=== PATIENT | male | born 1950 | race Caucasian/White ===

== ENCOUNTER → 2018-04-13 10:42 | Outpatient (CLI) | payer MEDICARE, MEDICAID, SELFPAY ==
[2018-04-13 13:14] LABS: ALT 164 U/L (12-78); AST 120 U/L (15-37); Alkaline Phosphatase 96 U/L (46-116); Amylase 55 U/L (25-115); Anion Gap 11.5 mmol/L (3-11); BUN 23 mg/dL (7-18); Bilirubin, Total 0.6 mg/dL (0.2-1.0); CO2 29.5 mmol/L (21.0-32.0); CREATININE 1.13 mg/dL (0.70-1.30); Calcium 9.8 mg/dL (8.5-10.1); Chloride 90 mmol/L (98-107); Glucose 122 mg/dL (70-100); Lipase 363 U/L (73-393); Potassium 3.8 mmol/L (3.5-5.1); Sodium 131 mmol/L (136-145); TSH 1.48 uIU/mL (0.358-3.74); Total Protein 7.9 g/dL (6.4-8.2)
[2018-04-13 14:15] LABS: ESR 18 MM/HR (1-20)
[2018-04-14 12:56] LABS: Lyme Ab w Rflx to Lyme Confirm Negative
== END ==
PROVIDERS: PCP Family Medicine; Visit Provider Family Medicine
DX: R10.12 Left upper quadrant pain (principal); R53.83 Other fatigue
CPT/HCPCS: 36415; 80053; 83690; 85652; 82150; 84443; 86618

== ENCOUNTER → 2018-04-20 00:30 | Outpatient (CLI) | payer MEDICARE, MEDICAID, SELFPAY ==
--- NOTE | 2018-04-20 07:26 | DI.RPTCT_ITS ---
SYMPTOM/DIAGNOSIS: ATYPICAL LUQ PAIN/RECENT DIARRHEA, LUQ PAIN R10.[address]: 04/20 CT examination of the abdomen and pelvis was performed with a bolus infusion of 100 cc Omnipaque 350 and ingestion of dilute barium. Images obtained through the lung bases are unremarkable. The liver appears mildly enlarged and is of decreased attenuation consistent with hepatic steatosis. No focal lesion identified. Spleen is unremarkable. Pancreas appears normal. No biliary dilatation or gallbladder abnormality seen by CT criteria. Abdominal aorta is of normal diameter and no major vascular abnormality seen. Small bilateral fat containing inguinal hernias are noted. Adrenals are unremarkable in appearance. There are a couple of apparent tiny left renal cysts, otherwise, kidneys are unremarkable in appearance and there is no evidence of urinary tract obstruction or calcification. Urinary bladder is essentially empty. The possibility of urinary bladder wall thickening is not excluded but this cannot be evaluated due to the contracted gallbladder status. Appendix is normal. There is question of wall thickening of portions of the ascending colon and distal descending colon and rectosigmoid as well as possibly mild wall thickening of the terminal ileum. The possibility of colitis is raised. No evidence of diverticulitis. No other bowl pathology identified and there is no evidence of obstruction. CONCLUSION: 1. Hepatic steatosis 2. Findings raising the possibility of colitis, the findings could be on the basis of inflammatory or infectious causes. Please correlate clinically.
[2018-04-20] MEDS: Omnipaque 350 MG/ML 50 ML BTL IJ (07:47)
[2018-04-20] MEDS: Breeza Beverage 473 ML BTL PO ×2 (09:25→09:26)
[2018-04-20] MEDS: Omnipaque 350 MG/ML 100 ML BTL IJ (09:25)
== END ==
PROVIDERS: PCP Family Medicine; Visit Provider Family Medicine
DX: R10.12 Left upper quadrant pain (principal); R19.7 Diarrhea, unspecified; K76.0 Fatty (change of) liver, not elsewhere classified; K63.89 Other specified diseases of intestine; K40.90 Unilateral inguinal hernia, without obstruction or gangrene, not specified as recurrent
CPT/HCPCS: 74177; Q9967; 82565; J3490

== ENCOUNTER 2019-03-16 10:01 | Outpatient (CLI) | payer MEDICARE, MEDICAID, SELFPAY ==
[2019-03-16 11:08] LABS: Abs Immature Grans 0.01 k/cumm (0.0-0.09); Absolute Basophil Count 0.06 k/cumm (0.0-0.2); Absolute Eosinophil Count 0.11 k/cumm (0.0-0.7); Absolute Lymphocyte Count 1.26 k/cumm (1.2-3.4); Absolute Monocyte Count 0.49 k/cumm (0.11-0.7); Absolute Neutrophil Count 6.73 k/cumm (1.2-6.7); Basophils % 0.7; Eosinophils % 1.3; HCT 25.5 % (40.0-50.0); Immature Grans % 0.1; Lymphocytes % 14.5; Mean Corp. HGB Concentration 31.4 g/dL (32.0-36.0); Mean Corpuscular Volume 89.2 fL (80-95); Mean Platelet Volume 10.1 fL (8.0-11.0); Monocytes % 5.7; Neutrophils % 77.7; Platelet Count 440 x1000/uL (130-400); RBC 2.86 m/cumm (4.50-6.00); RBC Distribution Width 27.6 % (11.8-14.1); White Blood Cell Count 8.66 k/cumm (4.4-10.8)
[2019-03-16 12:03] LABS: Anisocytosis 3+; Diff Comment RBC Morph Reviewed; Hypochromasia 2+; Target Cells 2+
[2019-03-16 12:05] LABS: ALT 66 U/L (12-78); AST 94 U/L (15-37); Alkaline Phosphatase 162 U/L (46-116); Anion Gap 13.3 mmol/L (3-11); BUN 14 mg/dL (7-18); Bilirubin, Total 0.8 mg/dL (0.2-1.0); CO2 24.7 mmol/L (21.0-32.0); CREATININE 1.46 mg/dL (0.70-1.30); Calcium 8.1 mg/dL (8.5-10.1); Chloride 94 mmol/L (98-107); Estimated GFR 48.16 (mL/min/1.73m2); Glucose 125 mg/dL (70-100); Potassium 4.2 mmol/L (3.5-5.1); Sodium 132 mmol/L (136-145); TSH 1.68 uIU/mL (0.358-3.74); Vitamin B12 826 pg/mL (193-986)
[2019-03-16 12:06] LABS: ESR 55 MM/HR (1-20)
[2019-03-16 12:24] LABS: Magnesium 0.7 mg/dL (1.8-2.4)
[2019-03-16 12:43] LABS: FREE T4 1.34 ng/dL (0.76-1.46)
[2019-03-16 17:36] LABS: T3, Total 146 ng/dl (97-169)
== END 2019-03-16 10:21 ==
PROVIDERS: Visit Provider Family Medicine
DX: R00.0 Tachycardia, unspecified (principal); R51 Headache; I10 Essential (primary) hypertension; E83.42 Hypomagnesemia; R20.2 Paresthesia of skin; R42 Dizziness and giddiness
CPT/HCPCS: 36415; 80053; 85652; 82607; 83735; 84439; 84443; 84480; 85025

== ENCOUNTER 2019-03-16 16:56 | Inpatient (IN) | payer MEDICARE, MEDICAID, SELFPAY ==
[2019-03-16] VITALS (26 sets, daily range): BP systolic 108–130; BP diastolic 65–81; PULSE 103–122; RESP 11–25; TEMP 36.6–37.2; O2SAT 73–100
--- NOTE | 2019-03-16 17:23 | W.ED.GENAD ---
Discharge Plan Disposition Patient Disposition: [facility] INPATIENT Condition: Stable Discharge Details Chief Complaint: GenMedical Clinical Impression: Hypomagnesemia, Anemia ED Provider: Yosi Álvarez Home Meds and New Rx's Prescriptions: No Action meloxicam 15 mg tablet 15 mg PO DAILY Qty: 30 RF: 2 triamcinolone acetonide 0.025 % cream 1 applic Topical BID Qty: 1 RF: 4 esomeprazole magnesium 40 mg capsule,delayed release(DR/EC) 40 mg PO DAILY Qty: 90 RF: 2 losartan 100 mg tablet 100 mg PO DAILY Qty: 90 RF: 4 azelastine 137 mcg (0.1 %) aerosol,spray 1 spray NS BID Qty: 200 RF: 2 sildenafil [Viagra] 100 MG tablet 100 mg PO PRN Qty: 6 RF: 3 amitriptyline 25 mg tablet 25 mg PO DAILY Qty: 90 RF: 4 hydrochlorothiazide 12.5 mg tablet 12.5 mg PO DAILY Qty: 90 RF: 4 Medical Decision Making 68-year-old male referred from the outpatient setting after screening labs revealed a magnesium of 0.7. Para graph he reports weeks of feeling lightheaded with rising, states one episode of fainting, and is noted and generalized leg weakness that has caused him to give out. He has not fallen or hurt himself. Denies difficulty with speech and no focal neurologic deficits. He arrives a temperature of 36.6, blood pressure 108/73, pulse at rest is 120. He lives at home alone in [facility]. Admits to nightly use of alcohol 3-4 drinks, states that he cooks for himself. Today's laboratories were drawn in the morning reveal a magnesium of 0.7 and as well a hemoglobin of 8 which is dropped from comparison about 1 year ago of 15. Differential diagnosis includes diuretic induced hypomagnesemia, dehydration, malnutrition, must exclude a central process for his recent leg weakness and CT scan of the head ordered. Patient placed on a registered nurse cardiac telemetry, screening labs repeated and magnesium initiated. This evening's laboratories reveal a magnesium of 0.6. Sodium 133, potassium 3.4, chloride 94, bicarb 24, BUN 12, creatinine 1.4, AST 89, ALT 64, alk phos 147. Albumin 2.9 Chest x-ray and CT scan of the head Given the patient's severe magnesium depletion, he will likely require to 4 to 8 g of parenteral infusion. Therefore, will require admission. Serial CBCs may be performed as he does have the new anemia as well ECG Data Attestation: I personally reviewed and interpreted this ECG (s) as follows: Interpretation: Normal sinus tachycardia with a rate of 110, the QRS is narrow, there is no acute ST segment elevation HPI General Mode of arrival: ambulatory. Date/Time Provider Initiated Documentation: 03/16/19 16:57. Limitations to Documentation: no limitations. Information obtained by: patient. History of Present Illness 68 year old M presents to the emergency department with the chief complaint of Leg weakness and abnormal laboratories today, described as moderate, and is localized to the lower extremity. Patient reports no radiation. Patient started experiencing this week(s) and it has been intermittent. No relieving factors improve symptom(s), No exacerbating factors reported . Patient notes no other symptoms.. Patient did receive the following treatments prior to arrival, none Related Data Home Medications Medication Instructions Recorded Confirmed sildenafil [Viagra] 100 mg PO PRN #6 tab-cap 12/02/17 03/16/19 amitriptyline 25 mg tablet 25 mg PO DAILY #90 tab-cap 05/24/18 03/16/19 hydrochlorothiazide 12.5 mg tablet 12.5 mg PO DAILY #90 tab 05/26/18 03/16/19 azelastine 137 mcg (0.1 %) nasal 1 spray NS BID #200 spray 12/05/18 03/16/19 spray aerosol esomeprazole magnesium 40 mg 40 mg PO DAILY #90 tab-cap 12/05/18 03/16/19 capsule,delayed release losartan 100 mg tablet 100 mg PO DAILY #90 tab-cap 12/05/18 03/16/19 meloxicam 15 mg tablet 15 mg PO DAILY #30 tab 12/05/18 03/16/19 triamcinolone acetonide 0.025 % 1 applic TOPICAL BID #1 gm 12/05/18 03/16/19 topical cream Previous Rx's Medication Instructions Recorded sildenafil [Viagra] 100 mg PO PRN #6 tab-cap 12/02/17 amitriptyline 25 mg tablet 25 mg PO DAILY #90 tab-cap 05/24/18 hydrochlorothiazide 12.5 mg tablet 12.5 mg PO DAILY #90 tab 05/26/18 azelastine 137 mcg (0.1 %) nasal 1 spray NS BID #200 spray 12/05/18 spray aerosol esomeprazole magnesium 40 mg 40 mg PO DAILY #90 tab-cap 12/05/18 capsule,delayed release losartan 100 mg tablet 100 mg PO DAILY #90 tab-cap 12/05/18 meloxicam 15 mg tablet 15 mg PO DAILY #30 tab 12/05/18 triamcinolone acetonide 0.025 % 1 applic TOPICAL BID #1 gm 12/05/18 topical cream Allergies Allergy/AdvReac Type Severity Reaction Status Date / Time lisinopril Allergy Intermediate Mouth Verified 03/16/19 09:19 blisters/cough General Stated Complaint: GenMedical RENEA: 3 Review of Systems Review of Systems Reports lightheadedness with rising over weeks time, generalized leg weakness over weeks time. Denies dark or bloody stools. No changes to medications. No recent illness. 8 systems reviewed and otherwise neg [facility] Surgical History Left leg multiple compound FX Left shoulder repair PROCEDURES Family History Mother No problems noted. Father No problems noted. Sister No problems noted. Sister No problems noted. Brother Depression Brother No problems noted. Social History Smoking/Tobacco Use Status: Current every day Tobacco Type: cigarettes Second Hand Exposure: No Alcohol Intake: current Alcohol Intake frequency: 3 or more drinks per day Alcohol type: hard liquor Drug use: Current Sobriety Substance use type: does not use Caregiver/Support person: No Housing: house Communication Needs: Hard of Hearing Pets and animals: No Sexually active: No Do you think of yourself as: straight/heterosexual Current gender identity: male What is your relationship status?: How often do you talk on the phone with friends or family?: once per week How often do you get together with friends or relatives?: decline to answer How often do you attend jewish or episcopalian services?: decline to answer Do you belong to any clubs or organized social groups?: no Panel score (0-1 are the most socially isolated patients): 0 What type of physical activity do you participate in: none Patito/Voodoo: No preference Special patito needs: No Seatbelt use: always Helmet use: No Drive intox or ride w/intox sulky driver: No Exam Narrative Exam Narrative: GEN: awake, alert, oriented 3. Pleasant, well groomed, interactive. HEAD: Normocephalic, atraumatic ENT: Mucous membranes moist, oropharynx unremarkable, External ear exam unremarkable EYES: PERRL, EOMI NECK: Full ROM, no CECILIA, no menigismus CHEST/RESP: Nontender, clear to auscultation bilateral, no wheeze/rhonchi/rales CARDIOVASCULAR: RRR, no murmur, rub gabrielle. 2+ Rad pulse bilateral ABDOMEN: Soft, nontender, no mass. +Bowel sounds. Rectal exam with normal tone, soft brown stool is guaiac negative EXT: Full ROM, no edema, no rash Neuro: Grossly normal neurologic exam, conversant, interactive. Psych: Speech fluent, thoughts congruent, affect normal Course Vital Signs Temperature 36.6 C 03/16/19 17:00 Pulse 122 H 03/16/19 17:00 Respiratory Rate 16 03/16/19 17:00 Blood Pressure 108/73 03/16/19 17:00 Pulse Oximetry 95 03/16/19 17:00 Temperature 36.6 C 03/16/19 17:00 Temperature Source Skin 03/16/19 17:00 Pulse 122 H 03/16/19 17:00 Respiratory Rate 16 03/16/19 17:00 Blood Pressure 108/73 03/16/19 17:00 Pulse Oximetry 95 03/16/19 17:00 Oxygen Delivery Method Room Air 03/16/19 17:00 Oxygen Flow Rate 0 03/16/19 17:00
[2019-03-16 17:41] LABS: Abs Immature Grans 0.02 k/cumm (0.0-0.09); Absolute Basophil Count 0.06 k/cumm (0.0-0.2); Absolute Eosinophil Count 0.08 k/cumm (0.0-0.7); Absolute Lymphocyte Count 2.16 k/cumm (1.2-3.4); Absolute Monocyte Count 0.59 k/cumm (0.11-0.7); Absolute Neutrophil Count 6.11 k/cumm (1.2-6.7); Basophils % 0.7; Eosinophils % 0.9; HCT 25.3 % (40.0-50.0); HGB 8.2 g/dL (13.5-17.5); Immature Grans % 0.2; Lymphocytes % 23.9; Mean Corp. HGB Concentration 32.4 g/dL (32.0-36.0); Mean Corpuscular Hemoglobin 28.8 pg (27.0-33.0); Mean Corpuscular Volume 88.8 fL (80-95); Mean Platelet Volume 10.1 fL (8.0-11.0); Monocytes % 6.5; Neutrophils % 67.8; Platelet Count 408 x1000/uL (130-400); RBC 2.85 m/cumm (4.50-6.00); RBC Distribution Width 27.9 % (11.8-14.1); White Blood Cell Count 9.02 k/cumm (4.4-10.8)
[2019-03-16] MEDS: MAGNESIUM SULFATE 2 GM/50 ML BAG IVPB (17:58)
--- NOTE | 2019-03-16 17:59 | NUR.NOTE ---
pt to ct taken by drafter (cad) electrical Nursing Note:
[2019-03-16 18:03] LABS: Anisocytosis 1+; Macrocytosis 1+; Microcytosis 1+
[2019-03-16 18:08] LABS: ALT 64 U/L (12-78); AST 89 U/L (15-37); Albumin 2.9 g/dL (3.4-5.0); Alkaline Phosphatase 147 U/L (46-116); Anion Gap 14.7 mmol/L (3-11); BUN 12 mg/dL (7-18); Bilirubin, Total 0.6 mg/dL (0.2-1.0); CO2 24.3 mmol/L (21.0-32.0); CREATININE 1.44 mg/dL (0.70-1.30); Chloride 94 mmol/L (98-107); Estimated GFR 48.93 (mL/min/1.73m2); Glucose 101 mg/dL (70-100); Potassium 3.4 mmol/L (3.5-5.1); Sodium 133 mmol/L (136-145); Total Protein 7.3 g/dL (6.4-8.2)
[2019-03-16 18:11] LABS: Magnesium 0.6 mg/dL (1.8-2.4)
--- NOTE | 2019-03-16 18:14 | DI.COMBO_ITS ---
SYMPTOM/DIAGNOSIS: GENERALIZED WEAKNESS, LEG WEAKNESS, FALLS PA AND LATERAL CHEST: No priors. The heart is normal in size. The lungs are clear. The mediastinal structures and pleura appear intact. CONCLUSION: Normal chest. NONCONTRAST HEAD CT: Comparison is made with 02/14/18. The ventricles and sulci are consistent with the patient's age. There is a small area of encephalomalacia involving the right parietal lobe. Areas of decreased attenuation are present in the white matter most consistent with small vessel ischemic disease. No acute intracranial hemorrhage, infarct, midline shift or mass effect is identified. The ventricles are intact. The basilar cisterns are patent. The visualized paranasal sinuses are clear as are the mastoid air cells. The calvarium is intact. IMPRESSION: No acute intracranial process.
--- NOTE | 2019-03-16 18:15 | NUR.NOTE ---
pt back from ct medicated as per mdo Nursing Note:
--- NOTE | 2019-03-16 18:27 | DI.VRAD_ITS ---
EXAM: XR Chest, 2 Views EXAM DATE/TIME: 03/16/2019 17:41 CLINICAL HISTORY: 68 years old, male; Other: Generalized weakness TECHNIQUE: Imaging protocol: XR of the chest, 2 views. COMPARISON: No relevant prior studies available. FINDINGS: Lungs: Mild hyperinflation without airspace consolidation. Pleural space: No pleural effusion. No pneumothorax. Heart/Mediastinum: No cardiomegaly. Bones/joints: No acute fracture. IMPRESSION: Mild hyperinflation without airspace consolidation. Dictated and Authenticated by: Vilma Casey MD. Ordering:MADELEINE Deluca MD
--- NOTE | 2019-03-16 18:27 | DI.VRAD_ITS ---
EXAM: CT Head Without Contrast EXAM DATE/TIME: 03/16/2019 17:24 CLINICAL HISTORY: 68 years old, male; Weakness, extremity; Patient HX: Generalized weakness TECHNIQUE: Imaging protocol: Axial computed tomography images of the head without contrast. Coronal and sagittal reformatted images were created and reviewed. Radiation optimization: All CT scans at this facility use at least one of these dose optimization techniques: automated exposure control; mA and/or kV adjustment per patient size (includes targeted exams where dose is matched to clinical indication); or iterative reconstruction. COMPARISON: No relevant prior studies available. FINDINGS: Brain: Moderate cerebral atrophy. Minimal periventricular white matter hypodensity. Small focus of right parietal encephalomalacia. No edema or hemorrhage. Ventricles: No ventriculomegaly. Bones/joints: No acute fracture. Sinuses: No acute sinusitis. Mastoid air cells: No mastoid effusion. Soft tissues: No suspicious lesions. IMPRESSION: No acute intracranial pathology. Dictated and Authenticated by: Vilma Casey MD. Ordering:MADELEINE Deluca MD
[2019-03-16] MEDS: MAGNESIUM SULFATE 4 GM/100 ML BAG IVPB (21:34)
[2019-03-16] MEDS: Enoxaparin 40 MG/0.4 ML SYR SC (21:35)
--- NOTE | 2019-03-16 22:55 | HPE_ITS ---
Date of service: 03/16/19 Time of Service: 22:55 Assessment and Plan (1) Hypomagnesemia: Current visit: Yes Status: Acute multiple factors contributing to his hypomagnesemia including chronic use of PPI w/out and identified reason for its use, chronic alcohol intake, poor diet, and chronic use of thiazide diuretic. I have changed his PPI to zantac however, I have kept him on his HCTZ since his BP is controlled. However, in light of his recent syncope spells his BP meds may need to be cut back and I would stop the HCTZ first. He will need chronic oral potassium and magnesium supplementation. I will have P.T. evaluate his gait/strength to be sure that there is no other components to his complaints of leg weakness. Hopefully with full Mg AND K replacments his symptoms will resolve. (2) Hypokalemia: Current visit: Yes Status: Acute begin oral replacement in addition to his magnesium supplements (3) Anemia: Current visit: Yes Status: Chronic I explained to the patient that while his stool was negative in the Er for occult blood that this does not mean that he is not slowly having some GI bleeding. Given his chronic heart burn issues he needs an EGD and given his age and anemia he also needs a c-scope. Both can be done as an outpatient and ought to be included on his home going instructions to have Dr. Michael make a referral for both procedures. Qualifiers: Anemia type: unspecified type Qualified Code(s): D64.9 - Anemia, unspecified (4) Essential hypertension: Current visit: No Status: Chronic continue his home meds for now. monitor his BP closely. Given his syncope spells he may not require as much bp meds. Check outpatient Zio patch to monitor for arrhythmias although his spells sound orthostatic in nature and not d/t arrhythmias. (5) Heart burn: Current visit: Yes Status: Acute change to zantac. needs upper endoscopy as outlined above (also lower endoscopy d/t age and anemia). History of Present Illness Chief Complaint: severe bilateral leg weakness Narrative: 68-year-old male with a past medical history significant for essential hypertensio n as well as chronic heartburn which is not been evaluated with endoscopy. He chronically takes omeprazole for his heartburn and is on losartan and hydrochlorothiazide for his essential hypertension. He presents emergency department by referral from his PCP Dr. Jumana Michael for treatment of severe hypomagnesemia. Patient had presented to her office because of complaints of bilateral lower extremity weakness for the past month and trouble walking upstairs. There is no associated numbness in his legs or hands or arms. He does admit to orthostatic lightheadedness and in fact had 2 or 3 syncopal spells the last one occurring a couple weeks ago. Outpatient labs this morning revealed a normocytic normochromic anemia with a hemoglobin of 8 g hematocrit 25% with a platelet count 440,000 and normal white count of 8600. Routine chemistries demonstrated a low serum sodium of 132 with normal potassium of 4.2 and a magnesium of 0.7 and elevated creatinine 1.46 with a normal BUN of 14. Liver transaminases are mildly elevated with an AST of 94 and alkaline phosphatase 162 and a low albumin of 3.0. Patient admits to regular alcohol use including 3 small glasses of vodka daily. He denies any history of alcohol withdrawal or seizures. Patient was evaluated emergency room by Dr. Yosi Álvarez who repeated the patient's chemistry profile and found his serum potassium to be low at 3.4 and his magnesium at 0.6. BUN and creatinine were pretty much the same. His CBC confirmed a anemia with a hemoglobin 8.2 g hematocrit 25%. His last normal CBC was in March 2018 when his hemoglobin was 15 g. Patient denies any melena nor any hematochezia nor any abdominal pain. He denies any chest pain or pressure or shortness of breath nor any palpitations. He is never had an upper nor lower endoscopy. Treatment emergency room included IV magnesium sulfate 2 g. I have since ordered another 4 g of magnesium intravenously to be given over 2 hours. Patient is also been given supplemental potassium as well as oral magnesium supplementation. I explained to the patient that the likely cause of his hypomagnesemia is a multifactorial cause including chronic use of omeprazole along with taking an oral diuretic such as hydrochlorothiazide as well as his chronic alcohol intake. He is not a vegetarian but admits he does not eat a lot of meat so there may be some problems with his diet and not getting adequate oral magnesium. I advised him he is going to need to go on a magnesium supp lementation and that he should have further evaluation of his anemia including upper and lower endoscopy as an outpatient. Review of Systems Constitutional Reports as per [facility] Eyes Reports system reviewed and no additional complaints, except as [facility] ENT Reports hearing loss Cardiovascular Denies chest pain, Denies chest pain at rest, Denies chest pain with activity, Reports syncope (2 or 3 episodes over past couple months. last one 2 wks ago, orthostatic), Reports lightheadedness, Denies dyspnea and Denies dyspnea on exertion Respiratory Denies dyspnea and Denies dyspnea on exertion Gastrointestinal Denies abdominal pain, Denies melena, Denies hematochezia, Denies change in bowel habits, Denies change in stool character, Reports heartburn (resolved w/ continued use of omeprazole), Denies nausea, Denies vomiting and Denies hematemesis Genitourinary Reports system reviewed and no additional complaints, except as [facility] Musculoskeletal Reports muscle weakness (both legs but not the arms) and Denies tingling Integumentary/Breasts Reports system reviewed and no additional complaints, except as [facility] Neurologic Reports syncope (2 or 3 episodes over past couple months. last one 2 wks ago, orthostatic), Reports focal weakness (both legs feel heavy and trouble picking them up to climb stairs), Denies sensory deficit, Denies tingling and Denies paresthesias Psychiatric Reports system reviewed and no additional complaints, except as [facility] Endocrine Reports system reviewed and no additional complaints, except as [facility] Hematologic/Lymphatic Reports system reviewed and no additional complaints, except as [facility] Allergic/Immunologic Reports system reviewed and no additional complaints, except as [facility] Medical History Allergic rhinitis (Chronic) Anxiety (Chronic 06/19/13) Chronic sinusitis (Chronic) Cluster headache syndrome (Chronic 05/01/13) 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 Father No problems noted. Sister No problems noted. Sister No problems noted. Brother Depression Brother No problems noted. Social History Smoking/Tobacco Use Status: Current every day Tobacco Type: cigarettes Second Hand Exposure: No Alcohol Intake: current Alcohol Intake frequency: 3 or more drinks per day Alcohol type: hard liquor Drug use: Current Sobriety Substance use type: does not use Caregiver/Support person: No Housing: house Communication Needs: Hard of Hearing Pets and animals: No Sexually active: No Do you think of yourself as: straight/heterosexual Current gender identity: male What is your relationship status?: How often do you talk on the phone with friends or family?: once per week How often do you get together with friends or relatives?: decline to answer How often do you attend worship or mu-ism services?: decline to answer Do you belong to any clubs or organized social groups?: no Panel score (0-1 are the most socially isolated patients): 0 What type of physical activity do you participate in: none Patito/Judaism: No preference Special patito needs: No Seatbelt use: always Helmet use: No Drive intox or ride w/intox transporter driver: No Meds Home Medications Medication Instructions Recorded Confirmed Type sildenafil [Viagra] 100 mg PO PRN #6 tab-cap 12/02/17 03/16/19 Rx amitriptyline 25 mg tablet 25 mg PO DAILY #90 tab-cap 05/24/18 03/16/19 Rx hydrochlorothiazide 12.5 mg tablet 12.5 mg PO DAILY #90 tab 05/26/18 03/16/19 Rx azelastine 137 mcg (0.1 %) nasal 1 spray NS BID #200 spray 12/05/18 03/16/19 Rx spray aerosol esomeprazole magnesium 40 mg 40 mg PO DAILY #90 tab-cap 12/05/18 03/16/19 Rx capsule,delayed release losartan 100 mg tablet 100 mg PO DAILY #90 tab-cap 12/05/18 03/16/19 Rx triamcinolone acetonide 0.025 % 1 applic TOPICAL BID #1 gm 12/05/18 03/16/19 Rx topical cream Allergies Allergy/AdvReac Type Severity Reaction Status Date / Time lisinopril Allergy Intermediate Mouth Verified 03/16/19 09:19 blisters/cough Exam Const General: cooperative, no acute distress and disheveled Nutritional Appearance: average body habitus Orientation: alert, awake and oriented x3 HENMT Head: normal to inspection, normocephalic and atraumatic Ears: hearing grossly impaired Mouth: oral mucosae normal, lip normal, tongue normal and oropharynx normal Teeth and gingiva: dentition normal Eyes General: appearance normal, both eyes and all related structures Alignment and Position: alignment normal Periorbital: periorbital findings normal Eyelids: eyelids normal Conjunctivae: conjunctivae normal Sclera: sclerae normal Cornea: corneas normal Pupils: PERRL EOM: EOM intact bilaterally Direct ophthalmoscopy: normal light reflex Neck Neck: normal visual inspection, full ROM, no lymphadenopathy, trachea midline, supple and no JVD Thyroid: thyroid normal Carotids: normal carotid upstroke Lymphatic: no lymphadenopathy noted Resp Effort & Inspection: normal respiratory effort and able to speak in complete sentences Auscultation: clear to auscultation bilaterally Cardio Jugular venous pressure: no JVD Palpation: normal PMI Rate: regular rate Rhythm: regular rhythm Heart Sounds: S1 normal, S2 normal, normal, physiologic split S2 and no murmurs Bruits: no abdominal aortic bruits Pulses: normal peripheral pulses GI Inspection: normal to inspection Palpation: soft and no hepatosplenomegaly Percussion: normal to percussion Auscultation: normal bowel sounds Rectal Exam: deferred Other: rectal exam done in the ER by ER attending and reported as normal, heme negative stool Back/Spine/Pelvis Back: no CVA tenderness Cervical Spine: normal cervical lordosis Thoracic/Lumbar Spine: thoracic and lumbar spine normal to inspection Skin General skin exam: no rashes or lesions noted, elasticity normal and turgor normal Lesions: no lesions Rashes: no rashes Extrem General: normal to inspection, full ROM and normal capillary refill Psych Appearance: disheveled Mental Status: mental status grossly normal Speech and Movement: speech and movement normal Mood: congruent mood Affect: normal affect Attitude: cooperative Thought Process: normal Thought Content: normal Insight: insight good Judgment: judgment good Results Imaging Additional studies: Patient Name: RAUL DA SILVA #: [id number]: ER Ordering Provider: : PRE ER Primary Care Provider: Date of Exam: 03/16/19Sex: M : 1Age: 68 Exam(s) EXAM: CT Head Without Contrast EXAM DATE/TIME: 03/16/2019 17:24 FINDINGS: Brain: Moderate cerebral atrophy. Minimal periventricular white matter hypodensity. Small focus of right parietal encephalomalacia. No edema or hemorrhage. Ventricles: No ventriculomegaly. Bones/joints: No acute fracture. Sinuses: No acute sinusitis. Mastoid air cells: No mastoid effusion. Soft tissues: No suspicious lesions. IMPRESSION: No acute intracranial pathology. Dictated and Authenticated by: Vilma Casey MD. Labs : 03/16/19 17:35 03/16/19 17:35 Laboratory Results - last 24 hr 03/16/19 03/16/19 17:35 17:35 WBC 9.02 RBC 2.85 L Hgb 8.2 L Hct 25.3 L MCV 88.8 MCH 28.8 MCHC 32.4 RDW 27.9 H Plt Count 408 H MPV 10.1 Immature Gran % 0.2 Neutrophils % 67.8 Lymphocytes % 23.9 Monocytes % 6.5 Eosinophils % 0.9 Basophils % 0.7 Absolute Neutrophils 6.11 Absolute Lymphocytes 2.16 Absolute Monocytes 0.59 Absolute Eosinophils 0.08 Absolute Basophils 0.06 RBC Morphology See below Anisocytosis 1+ Microcytosis 1+ Macrocytosis 1+ Sodium 133 L Potassium 3.4 L Chloride 94 L Carbon Dioxide 24.3 Anion Gap 14.7 H BUN 12 Creatinine 1.44 H Estimated GFR/1.73 m2 48.93 Glucose 101 H Calcium 8.0 L Magnesium 0.6 L* Total Bilirubin 0.6 AST 89 H ALT 64 Alkaline Phosphatase 147 H Total Protein 7.3 Albumin 2.9 L Last Vital Signs Temp 37.2 C 03/16/19 20:07 Pulse 110 H 03/16/19 20:07 Resp 18 03/16/19 20:07 BP 130/81 03/16/19 20:07 Pulse Ox 96 03/16/19 20:07
[2019-03-17] VITALS (19 sets, daily range): BP systolic 122–160; BP diastolic 75–99; PULSE 81–105; RESP 16–19; TEMP 35.8–37; O2SAT 93–98
[2019-03-17] MEDS: Magnesium Gluconate 500 MG TAB PO ×3 (00:25→20:22)
[2019-03-17] MEDS: Potassium Chloride 10 MEQ TABCR 20 MEQ PO ×3 (00:26→14:59)
[2019-03-17] MEDS: Normal Saline 1,000 ML 30 ML IV (05:11)
[2019-03-17 05:43] LABS: Bilirubin Negative (Negative); Blood Negative (Negative); Clarity Clear (Clear); Glucose Negative (Negative); Ketones Negative (Negative); Leukocyte Esterase Negative (Negative); Nitrite Negative (Negative); Specific Gravity 1.015 (1.005-1.025); Urobilinogen 0.2 EU/dL (Up TO 0.2)
[2019-03-17] MEDS: Amitriptyline 25 MG TAB PO (08:06)
[2019-03-17] MEDS: Losartan 50 MG TAB 100 MG PO (08:06)
[2019-03-17 08:17] LABS: Abs Immature Grans 0.02 k/cumm (0.0-0.09); Absolute Basophil Count 0.06 k/cumm (0.0-0.2); Absolute Eosinophil Count 0.09 k/cumm (0.0-0.7); Absolute Lymphocyte Count 1.92 k/cumm (1.2-3.4); Absolute Monocyte Count 0.49 k/cumm (0.11-0.7); Absolute Neutrophil Count 4.75 k/cumm (1.2-6.7); Basophils % 0.8; Eosinophils % 1.2; HCT 21.1 % (40.0-50.0); Immature Grans % 0.3; Lymphocytes % 26.2; Mean Corp. HGB Concentration 32.2 g/dL (32.0-36.0); Mean Corpuscular Hemoglobin 28.7 pg (27.0-33.0); Mean Platelet Volume 10.3 fL (8.0-11.0); Monocytes % 6.7; Neutrophils % 64.8; Platelet Count 354 x1000/uL (130-400); RBC 2.37 m/cumm (4.50-6.00); RBC Distribution Width 27.5 % (11.8-14.1); White Blood Cell Count 7.33 k/cumm (4.4-10.8)
[2019-03-17 08:20] LABS: HGB 6.8 g/dL (13.5-17.5)
[2019-03-17 08:22] LABS: Anisocytosis 3+; Basophilic Stippling Present; Diff Comment RBC Morph Reviewed; Hypochromasia 2+; Microcytosis 2+
[2019-03-17 08:23] LABS: Poikilocytes 1+; Polychromasia Present
[2019-03-17 08:25] LABS: Folate 6.4 ng/mL (8.6-20.0)
[2019-03-17 09:02] LABS: Iron 70 ug/dL (50-175); Total Iron Binding Capacity 187 ug/dL (250-450); Transferrin Sat 37 % (20-55)
[2019-03-17 09:10] LABS: HCT 23.8 % (40.0-50.0); HGB 7.7 g/dL (13.5-17.5)
[2019-03-17 09:19] LABS: Anion Gap 11.2 mmol/L (3-11); BUN 11 mg/dL (7-18); CO2 23.8 mmol/L (21.0-32.0); Calcium 7.6 mg/dL (8.5-10.1); Chloride 97 mmol/L (98-107); GGT 324 U/L (15-85); Glucose 107 mg/dL (70-100); Magnesium 2.1 mg/dL (1.8-2.4); Potassium 3.8 mmol/L (3.5-5.1); Sodium 132 mmol/L (136-145)
[2019-03-17 09:22] LABS: Ferritin 1683 ng/mL (8-388)
[2019-03-17 09:32] LABS: LDH 147 U/L (85-227)
--- NOTE | 2019-03-17 10:42 | PT.INNT ---
Date of service: 03/17/19 Time of Service: 10:43 PT Notes Referral for physical therapy was received today with order stating to evaluate and treat for bilateral extremity weakness. Nurse stated that patient is to be infused with blood upon PT's arrival. Patient will be seen this afternoon instead for physical therapy evaluation as ordered. Thank you very much for this referral. Fiona Weeks PT, DPT, CLT [facility]
[2019-03-17] MEDS: Sucralfate 1 GM TAB PO ×3 (11:13→22:15)
[2019-03-17] MEDS: Folic Acid 1 MG TAB PO (11:13)
--- NOTE | 2019-03-17 12:31 | INITIAL_ITS ---
- If Service Date Differs Date of service: 03/17/19 Time of Service: 12:31 Care Management Initial Assess REASON FOR HOSPITALIZATION:: Hypomagesemia PAST MEDICAL HISTORY/PAST SURGICAL HISTORY:: GERD, anemia, anxiety, headaches, deviated nasal septum, HTN, , per report daily alcohol use. PREVIOUS FUNCTIONAL STATUS/SOCIAL/FAMILY SUPPORTS:: Derrell lives alone in [place], [place]. He has no family locally he has friends in the area that provide support. He is able to ambulate, transport himself and attend to his own ADL's. CURRENT FUNCTIONAL STATUS:: Sebastian is alert and engaged in conversation he does have difficulty hearing. He does report that he will need a ride home as a friend brought him in. He does have medciald and CM will need to arrange transport home at time of discharge. Derrell states he drives at baseline but has been to weak to continue this right now. Derrell does report that he barley gets by at home with his SSI and CM is concerned about food insecurity although patient states I get by. ADVANCE DIRECTIVES:: None on file he would consider completing them prior to discharge once he is more rested, CM will provide forms to review. Has patient been provided with information about the portal?: Yes Did the patient sign up for the portal?: No CODE STATUS:: Full Code INSURANCE COVERAGE / FINANCIAL ISSUES:: Medicare/Medicaid CURRENT HOME/COMMUNITY SERVICES/EQUIPMENT:: None PRIMARY CARE PHYSICIAN:: POTENTIAL DISCHARGE NEEDS:: Follow up with primary care, including referral for EGD if recomended at discharge. RCT referral to establish service and COA referral. PATIENT/FAMILY EDUCATION NEEDS:: Discharge education, limitations and follow up plan of care including ask me three and self management. ANTICIPATED BARRIERS TO DISCHARGE:: None TRANSPORTATION:: Via RCT to be coordinated by CM prior to discharge. PLAN:: Sebastian is receiving transfusion today he does have a surgical consult. He is receiving magnesium, IV fluids and lab montioring, he continues on telemetry. CM to continue to assess for needs and discharge planning and disposition.
--- NOTE | 2019-03-17 14:50 | PHARADMIT ---
Admission Pharmacy Clinical Review Code Status Full Code Current Weight 69.7 kg Renally Cleared and Narrow Therapeutic Index Meds CrCL ~58.4 QTc Value / Action Taken QTC 466 BP Control, Fever 146/87, afebrile Electrolytes reviewed NA 132, K+ 3.8, Mg 2.1 (up from 0.6) DVT Prophylaxis No Opiate Usage / Scheduled Bowel Regimen Ordered No Plt/SCr for Heparin / Enoxaparin Plt 354, Scr 1.1 INR for Warfarin n/a H/H stable, WBC/Bands H/H 23.8/7.7 Antibiotic appropriateness n/a Cultures and Sensitivities n/a Surgical ABX d/c within 24 hr n/a DM control / Insulin Dosing n/a Heart Failure (Check EF%) (ALY's, B-Block, Diuretics) Losartan IV to PO Switch n/a Home Meds Reviewed Yes - all ok Home Meds Not Ordered Esomeprazole tamsulosin HCTZ Comments Severe hypomagnesemia thought to be due to combination of EtOH use plus a PPI plus HCTZ -- dc'ing PPI and starting on H2 kenny plus carafate, dc'ing HCTZ Hgb was 6.8 this AM, patient was transfused and surgery consulted to perform an endoscopy as acute blood loss in the upper GI is suspected
--- NOTE | 2019-03-17 15:02 | IN_ITS ---
Date of service: 03/17/19 Time of Service: 14:16 PT Notes Inpatient Physical Therapy Evaluation Date: 03/17/2019 Referring Doctor: Mathew Baltazar MD PT Orders: PT CONSULT: Evaluate and treat for bilateral lower extremity weakness Precautions: Fall. Standard. Activity as tolerated. Patient Profile/Admitting Diagnosis: Patient is a 68-year-old male who presented to the ED on 03/16/2019 with chief complaints of weeklong lightheadedness, severe bilateral leg weakness with increased trouble walking and negotiating stairs. Patient was diagnosed with hypomagnesemia, hypokalemia, anemia, and heartburn. Referral for physical therapy was made in order to address impairment in strength, mobility level, and activity tolerance. 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 he has a flight of stairs to get onto the second floor of the house where he has his bedroom and bathroom. He states that it has become difficult to manage the steps these past couple of weeks. He is independent with all aspects of ADLs without the need for an assistive ambulatory device nor adaptive equipment. Current Functional Limitations: need for assistance for all transfer and ambulation task performance Equipment Owned/DME: None Subjective: Patient is agreeable to a PT consult. He feels a bit better after having received a unit of blood this morning but continues to report being weak with ambulation performance. He denies being dizzy, having chest pains, and having a headache. He is agreeable to recommendations of having PT services if needed upon discharge from this hospital. he also stated that because of the long-standing weakness, he has not driven for the past three weeks. Objective: General Observation: Resting in bed. Telemetry monitoring in place. IV in right UE open. Mental Status: Alert and oriented x4 Pain: 0/10 Vital Signs: 146/87 mmHg, 89 bpm, 96% on RA. ROM: Right Upper Extremity: Shoulder Flexion WFL. Shoulder abduction WFL. Elbow flexion WFL. Wrist flexion WFL. Functional opening and closing of hand WFL. Left Upper Extremity: Shoulder Flexion WFL. Shoulder abduction WFL. Elbow flexion WFL. Wrist flexion WFL. Functional opening and closing of hand WFL. Right Lower Extremity: Hip flexion WFL. Hip abduction WFL. Knee flexion WFL. Ankle dorsiflexion WFL. Ankle plantarflexion WFL. Left Lower Extremity: Hip flexion WFL. Hip abduction WFL. Knee flexion WFL. Ankle dorsiflexion WFL. Ankle plantarflexion WFL. Strength: Right Upper Extremity: Shoulder flexors 4/5. Shoulder abductors 4-/5. Elbow flexors 5/5. Elbow extensors 4/5. Clip On Sunglasses Inspector strong. Left Upper Extremity: Shoulder flexors 4/5. Shoulder abductors 4-/5. Elbow flexors 5/5. Elbow extensors 4/5. Clip On Sunglasses Inspector strong. Right Lower Extremity: Hip flexors 4-/5. Hip abductors 4-/5. Knee flexors 4/5. Knee extensors 4/5. Ankle dorsiflexors 4/5. Ankle plantarflexors 4/5. Left Lower Extremity:Hip flexors 4-/5. Hip abductors 4-/5. Knee flexors 4-/5. Knee extensors 3+/5. Ankle dorsiflexors 4/5. Ankle plantarflexors 4/5. Sensation: Intact as to pain and pressure on bilateral lower extremities. Bed Mobility/Transfers: Rolling SBA Supine to sit SBA Sit to supine SBA Sit to stand CGA Stand to sit CGA Bed to chair CGA Chair to bed CGA Gait: Patient tolerated in room level surface ambulation of up to 20 feet x 2 walking from bedside to toilet seat using front-wheeled walker with contact- guard assist of this PT using step-through gait pattern. Decreased gait velocity noted due to weakness and impaired activity tolerance. Balance: Static Sitting: Good Dynamic Sitting: Good Static Standing: Fair Dynamic Standing: Fair Special Tests: Mobility Limitations Standardized Measure [facility] AM-PAC 6 clicks Basic Mobility Inpatient Short Form: Raw Score: 18 CMS Score: 47% deficit Informed Consent/Education: Patient instructed in purpose of PT consult and plan of care. Assessment: Patient is a 68-year-old male diagnosed with hypomagnesemia, hypokalemia, anemia, and heartburn. Patient presents with clinical signs and symptoms consistent with current/admitting diagnoses that have resulted to mobility limitations, gait instability, generalized weakness, and impairment of motor control as demonstrated by the following impairment level findings: 1. Decreased strength to B LE major muscle groups 2. Impaired standing balance 3. Impaired activity tolerance Impairments are contributing to the following functional limitations: 1. Decreased independence bed mobility skills 2. Decreased independence with transfers 3. Inability to safely ambulate without assistive device and physical assistance 4. Increase completion time for mobility ADL performance 5. Increased fall risk 6. Inability to negotiate steps alone safely Patient is assessed as a 9716 to moderate complexity based on the following: History: Patient is a cognitively intact 68-year-old male with independent premorbid level diagnosed with hypomagnesemia, hypokalemia, anemia, and heartburn Examination: Demonstrable impairment in strength, balance, and range of motion with underlying impairments and functional limitations as documented above Presentation:Evolving Decision Making: Goals: Goals X1 week 1. Supine-Sit independent 2. Sit-Supine independent 3. Sit-Stand independent 4. Stand-Sit independent 5. Bed-Chair independent 6. Chair-Bed independent 7. Independent gait on level surface with use of least restrictive device for at least 200 feet without report of pain nor dyspnea 8. Independent stair negotiation while holding onto bilateral rails for at least 15 steps without report of pain nor dyspnea 9. Independent with home exercise program 10. Good static and dynamic standing balance/tolerance Plan of Care/Treatment Plan: 1-2x/day, 7 days/week x 1 week. Plan of care has been reviewed with the DEVELOPMENT MGR providing the service under Physical Therapy direction. Initiate Physical Therapy intervention for strengthening, bed mobility, transfers, gait, stairs, balance training, use of assistive device. DISCHARGE RECOMMENDATIONS: May need front wheeled walker for home. Patient will benefit from home health PT services in order to progress mobility level using least restrictive assistive ambulatory device/using no device, assess home safety, identify additional equipment needs, and establish a functional maint enance program that will increase ability of patient to remain at home. TREATMENT CODE/TIME: 15666 x 28 minutes beginning at 14:16 p.m. Thank you very much for this referral. Fiona Weeks PT, DPT, CLT [facility]
[2019-03-17] MEDS: Acetaminophen 325 MG TAB 650 MG PO (15:07)
[2019-03-17 15:47] LABS: HCT 23.7 % (40.0-50.0); HGB 7.9 g/dL (13.5-17.5)
--- NOTE | 2019-03-17 15:52 | PGE_ITS ---
Date of Service Date of service: 03/17/19 Time of Service: 15:53 Assessment and Plan (1) Anemia: Current visit: Yes Status: Chronic Evidence of Anemia of Chronic Disease by Iron studies. Also with low Folic Acid, with repletion initiated. Heme negative. Transfused 1 unit due to symptomatic anemia. Recommend official stool for occult blood (pending at this time), and as long as patient remains stable, outpatient EGD and Colonoscopy. However, given EtOH use and daily GERD symptoms may have a component of blood loss as well - will discontinue PPI (see below), continue H2 kenny, and initiate Carafate for now. Qualifiers: Anemia type: unspecified type Qualified Code(s): D64.9 - Anemia, unspecified (2) Hypomagnesemia: Current visit: Yes Status: Acute Very likely multi-factorial in the setting of chronic PPI use, Thiazide diuretic, and chronic alcohol use. Apprears replete this morning. Continue standing magnesium, monitor levels, d iscontinue both PPI and HCTZ, and encourage decrease/cessation of alcohol use. (3) Excessive drinking alcohol: Current visit: Yes Status: Acute Suspect elevated use, and cannot rule out cara alcohol abuse. Recommend close monitoring on CIWA protocol while hospitalized. (4) Essential hypertension: Current visit: No Status: Chronic Blood Pressure appropriate despite discontinuation of thiazide, likely in setting of significant drop in Hgb. Continue ARB, monitor blood pressure, and consider addition of CCB therapy if needed. (5) DVT prophylaxis: Current visit: Yes Status: Acute Continue to hold chemical prophylaxis at this time. Ensure SCDs, TEDs. Subjective Interval history since last seen: 68-year-old man with a prior history signifi cant for HTN and excessive daily alcohol use, admitted from [facility] Emergency Department on 03/16 with a diagnosis of Hypomagnesemia, Anemia, and weakness. Mr. Howard has a Past Medical History significant for HTN, as well as chronic GERD without prior evaluation and for which he is maintained on chronic PPI therapy. Upon questioning he also admits to 3 vodka drinks daily, and when asked to quantify hold up 3 fingers. The patient had presented initially to his PCP's office with complaints of b/l LE weakness, ongoing for approximately one month, as well as orthostatic dizziness and 2-3 syncopal episodes somewhat recently. Labs were obtained showing significant hypomagnesemia, as well as evidence of a new and significant drop in hemoglobin, with a normocytic anemia. The patient also had evidence of elevated AST and mildly elevated alk phos. He was heme negative upon testing. The patient was admitted for further evaluation and treatment. This morning Mr. Howard reports continued fatigue and dizziness when attempting to stand. His Hgb dropped further, with an initial value of 6.8, but with repeat coming back at 7.7 without intervention. Given symptoms he was transfused with 1 unit of PRBCs. His iron studies indicate Anemia of Chronic Disease, and he was noted to have a Folic Acid Deficiency. No overnight events reported. Remains afebrile. Exam Narrative Exam Narrative: General: Patient appears pale, AAOX3, NAD Neck: Supple CV: Regular, tachycardic at exam, S1S2, No rubs, murmurs, or gallops. Pulmonary: Clear to auscultation bilaterally, no crackles, wheezing, or rhonchi Abdomen: + Bowel Sounds, soft, nontender, nondistended Vascular: No lower extremity edema Psych: Normal mood and affect. Objective Objective Clinical Data: Abnormal lab results 03/16/19 03/16/19 03/17/19 Range/Units 17:35 17:35 06:58 RBC 2.85 L (4.50-6.00) m/cumm Hgb 8.2 L (13.5-17.5) g/dL Hct 25.3 L (40.0-50.0) % RDW 27.9 H (11.8-14.1) % Plt Count 408 H (130-400) x1000/uL Sodium 133 L 132 L (136-145) mmol/L Potassium 3.4 L (3.5-5.1) mmol/L Chloride 94 L 97 L (98-107) mmol/L Anion Gap 14.7 H 11.2 H (3-11) mmol/L Creatinine 1.44 H (0.70-1.30) mg/dL Glucose 101 H 107 H (70-100) mg/dL Calcium 8.0 L 7.6 L (8.5-10.1) mg/dL Magnesium 0.6 L* (1.8-2.4) mg/dL TIBC (250-450) ug/dL Ferritin 1683 H (8-388) ng/mL GGT 324 H (15-85) U/L AST 89 H (15-37) U/L Alkaline Phosphatase 147 H (46-116) U/L Albumin 2.9 L (3.4-5.0) g/dL Folate (8.6-20.0) ng/mL Crossmatch 03/17/19 03/17/19 03/17/19 Range/Units 06:58 06:58 06:58 RBC 2.37 L (4.50-6.00) m/cumm Hgb 6.8 L* (13.5-17.5) g/dL Hct 21.1 L (40.0-50.0) % RDW 27.5 H (11.8-14.1) % Plt Count (130-400) x1000/uL Sodium (136-145) mmol/L Potassium (3.5-5.1) mmol/L Chloride (98-107) mmol/L Anion Gap (3-11) mmol/L Creatinine (0.70-1.30) mg/dL Glucose (70-100) mg/dL Calcium (8.5-10.1) mg/dL Magnesium (1.8-2.4) mg/dL TIBC 187 L (250-450) ug/dL Ferritin (8-388) ng/mL GGT (15-85) U/L AST (15-37) U/L Alkaline Phosphatase (46-116) U/L Albumin (3.4-5.0) g/dL Folate 6.4 L (8.6-20.0) ng/mL Crossmatch 03/17/19 03/17/19 03/17/19 Range/Units 08:26 08:55 08:55 RBC (4.50-6.00) m/cumm Hgb 7.7 L (13.5-17.5) g/dL Hct 23.8 L (40.0-50.0) % RDW (11.8-14.1) % Plt Count (130-400) x1000/uL Sodium (136-145) mmol/L Potassium (3.5-5.1) mmol/L Chloride (98-107) mmol/L Anion Gap (3-11) mmol/L Creatinine (0.70-1.30) mg/dL Glucose (70-100) mg/dL Calcium (8.5-10.1) mg/dL Magnesium (1.8-2.4) mg/dL TIBC (250-450) ug/dL Ferritin (8-388) ng/mL GGT (15-85) U/L AST (15-37) U/L Alkaline Phosphatase (46-116) U/L Albumin (3.4-5.0) g/dL Folate (8.6-20.0) ng/mL Crossmatch See Detail See Detail 03/17/19 Range/Units 14:37 RBC (4.50-6.00) m/cumm Hgb 7.9 L (13.5-17.5) g/dL Hct 23.7 L (40.0-50.0) % RDW (11.8-14.1) % Plt Count (130-400) x1000/uL Sodium (136-145) mmol/L Potassium (3.5-5.1) mmol/L Chloride (98-107) mmol/L Anion Gap (3-11) mmol/L Creatinine (0.70-1.30) mg/dL Glucose (70-100) mg/dL Calcium (8.5-10.1) mg/dL Magnesium (1.8-2.4) mg/dL TIBC (250-450) ug/dL Ferritin (8-388) ng/mL GGT (15-85) U/L AST (15-37) U/L Alkaline Phosphatase (46-116) U/L Albumin (3.4-5.0) g/dL Folate (8.6-20.0) ng/mL Crossmatch Vital Signs Temperature 36.2 C L 03/17/19 15:40 Temperature Source Tympanic 03/17/19 15:40 Pulse 87 03/17/19 15:40 Pulse Rhythm Regular 03/17/19 05:00 Pulse 109 H 03/16/19 19:20 Respiratory Rate 18 03/17/19 15:40 Respiratory Effort Non-Labored 03/17/19 05:00 Respiratory Depth Normal 03/17/19 05:00 Respiratory Pattern Normal 03/17/19 05:00 Blood Pressure 145/87 H 03/17/19 15:40 Blood Pressure Mean 80 03/16/19 19:16 Pulse Oximetry 97 03/17/19 15:40 Oxygen Delivery Method Room Air 07/12/19 15:40 Oxygen Flow Rate 0 03/17/19 15:40 Pain Level 0 03/17/19 15:40 Comment 03/17/19 14:05 Intake & Output 03/16/19 03/17/19 03/17/19 23:59 11:59 23:59 Intake Total 50 / 50 344 / 344 Output Total 1100 / 1350 250 / 1350 Balance 50 / 50 -1100 / -1006 94 / -1006 Weight 69.853 kg 69.7 kg Intake: IV 50 / 50 Oral 60 / 60 Blood Product 284 / 284 Rbc Leuko Reduced Unit 284 / 284 [id number] Output: Urine 1100 / 1350 250 / 1350 Other: Urine Color Yellow Yellow Urine Appearance Clear Clear Urine Odor Normal Normal Voiding Methods Urinal Laboratory Results WBC 7.33 k/cumm (4.4-10.8) 03/17/19 06:58 RBC 2.37 m/cumm (4.50-6.00) L 03/17/19 06:58 Hgb 7.9 g/dL (13.5-17.5) L 03/17/19 14:37 Hct 23.7 % (40.0-50.0) L 03/17/19 14:37 MCV 89.0 fL (80-95) 03/17/19 06:58 MCH 28.7 pg (27.0-33.0) 03/17/19 06:58 MCHC 32.2 g/dL (32.0-36.0) 03/17/19 06:58 RDW 27.5 % (11.8-14.1) H 03/17/19 06:58 Plt Count 354 x1000/uL (130-400) 03/17/19 06:58 MPV 10.3 fL (8.0-11.0) 03/17/19 06:58 Immature Gran % 0.3 03/17/19 06:58 64.8 03/17/19 06:58 26.2 03/17/19 06:58 6.7 03/17/19 06:58 1.2 03/17/19 06:58 0.8 03/17/19 06:58 Absolute Neutrophils 4.75 k/cumm (1.2-6.7) 03/17/19 06:58 Absolute Lymphocytes 1.92 k/cumm (1.2-3.4) 03/17/19 06:58 Absolute Monocytes 0.49 k/cumm (0.11-0.7) 03/17/19 06:58 Absolute Eosinophils 0.09 k/cumm (0.0-0.7) 03/17/19 06:58 Absolute Basophils 0.06 k/cumm (0.0-0.2) 03/17/19 06:58 Rbc morph reviewed 03/17/19 06:58 RBC Morphology See below 03/17/19 06:58 Present 03/17/19 06:58 2+ 03/17/19 06:58 1+ 03/17/19 06:58 Present 03/17/19 06:58 3+ 03/17/19 06:58 2+ 03/17/19 06:58 1+ 03/16/19 17:35 Sodium 132 mmol/L (136-145) L 03/17/19 06:58 Potassium 3.8 mmol/L (3.5-5.1) 03/17/19 06:58 Chloride 97 mmol/L (98-107) L 03/17/19 06:58 Carbon Dioxide 23.8 mmol/L (21.0-32.0) 03/17/19 06:58 11.2 mmol/L (3-11) H 03/17/19 06:58 BUN 11 mg/dL (7-18) 03/17/19 06:58 1.10 mg/dL (0.70-1.30) 03/17/19 06:58 >= 60.00 (mL/min/1.73m2) 03/17/19 06:58 Glucose 107 mg/dL (70-100) H 03/17/19 06:58 Calcium 7.6 mg/dL (8.5-10.1) L 03/17/19 06:58 Magnesium 2.1 mg/dL (1.8-2.4) 03/17/19 06:58 Iron 70 ug/dL (50-175) 03/17/19 06:58 TIBC 187 ug/dL (250-450) L 03/17/19 06:58 Transferrin % Sat 37 % (20-55) 03/17/19 06:58 1683 ng/mL (8-388) H 03/17/19 06:58 0.6 mg/dL (0.2-1.0) 03/16/19 17:35 GGT 324 U/L (15-85) H 03/17/19 06:58 AST 89 U/L (15-37) H 03/16/19 17:35 ALT 64 U/L (12-78) 03/16/19 17:35 147 U/L (46-116) H 03/16/19 17:35 147 U/L (85-227) 03/17/19 06:58 7.3 g/dL (6.4-8.2) 03/16/19 17:35 2.9 g/dL (3.4-5.0) L 03/16/19 17:35 6.4 ng/mL (8.6-20.0) L 03/17/19 06:58 Yellow (Yellow) 03/17/19 05:20 Clear (Clear) 03/17/19 05:20 7.0 (5-8) 03/17/19 05:20 Ur Specific [place] 1.015 (1.005-1.025) 03/17/19 05:20 Negative mg/dL (Negative) 03/17/19 05:20 Negative mg/dL (Negative) 03/17/19 05:20 Negative (Negative) 03/17/19 05:20 Negative (Negative) 03/17/19 05:20 Negative (Negative) 03/17/19 05:20 0.2 EU/dL (Up TO 0.2) 03/17/19 05:20 Ur Leukocyte Esterase Negative (Negative) 03/17/19 05:20 Negative mg/dL (Negative) 03/17/19 05:20 Patient ABO/Rh B Positive 03/17/19 08:55 Antibody Screen Negative 03/17/19 08:55 Crossmatch See Detail 03/17/19 08:55
[2019-03-17 20:31] LABS: HCT 25.8 % (40.0-50.0); HGB 8.4 g/dL (13.5-17.5)
[2019-03-18] VITALS (12 sets, daily range): BP systolic 102–165; BP diastolic 66–97; PULSE 68–117; RESP 18–20; TEMP 36.4–36.9; O2SAT 96–100
[2019-03-18] MEDS: Sucralfate 1 GM TAB PO ×4 (05:11→23:34)
[2019-03-18 08:11] LABS: Anion Gap 8.5 mmol/L (3-11); BUN 7 mg/dL (7-18); CO2 24.5 mmol/L (21.0-32.0); CREATININE 0.89 mg/dL (0.70-1.30); Calcium 7.5 mg/dL (8.5-10.1); Chloride 99 mmol/L (98-107); Glucose 99 mg/dL (70-100); Magnesium 1.5 mg/dL (1.8-2.4); Sodium 132 mmol/L (136-145)
[2019-03-18 08:18] LABS: Abs Immature Grans 0.01 k/cumm (0.0-0.09); Absolute Basophil Count 0.04 k/cumm (0.0-0.2); Absolute Eosinophil Count 0.16 k/cumm (0.0-0.7); Absolute Lymphocyte Count 1.52 k/cumm (1.2-3.4); Absolute Monocyte Count 0.45 k/cumm (0.11-0.7); Absolute Neutrophil Count 4.45 k/cumm (1.2-6.7); Basophils % 0.6; Eosinophils % 2.4; HCT 24.7 % (40.0-50.0); HGB 8.1 g/dL (13.5-17.5); Immature Grans % 0.2; Lymphocytes % 22.9; Mean Corp. HGB Concentration 32.8 g/dL (32.0-36.0); Mean Corpuscular Volume 88.5 fL (80-95); Mean Platelet Volume 10.5 fL (8.0-11.0); Monocytes % 6.8; Neutrophils % 67.1; Platelet Count 330 x1000/uL (130-400); RBC 2.79 m/cumm (4.50-6.00); RBC Distribution Width 24.5 % (11.8-14.1); White Blood Cell Count 6.63 k/cumm (4.4-10.8)
[2019-03-18] MEDS: Magnesium Gluconate 500 MG TAB PO ×2 (08:45→20:02)
[2019-03-18] MEDS: Losartan 50 MG TAB 100 MG PO (08:45)
[2019-03-18] MEDS: Multivitamin TAB 1 TAB PO (08:46)
[2019-03-18] MEDS: Amitriptyline 25 MG TAB PO (08:46)
[2019-03-18] MEDS: Folic Acid 1 MG TAB PO (08:46)
[2019-03-18] MEDS: Thiamine 100 MG TAB PO (08:47)
--- NOTE | 2019-03-18 10:51 | PT.INTREAT ---
Date of service: 03/18/19 Time of Service: 09:10 PT Notes Inpatient Physical Therapy Treatment Note [facility] Date: [id number] PRECAUTIONS:Standard SUBJECTIVE: Pt reports that he is feeling better today then yesterday. OBJECTIVE: Supine-sit: SBA Sit-supine: SBA Sit-stand: CGA Stand-sit: SBA GAIT Assistive Device: FWW Weight bearing: Full Assist: CGA Distance: 50ftx2 THEREX: Pt completed UE and LE ther ex as per flow sheet. STAIRS: up and down 3 steps with 1 railx3 with CGAx1 ASSESSMENT: Pt tolerate today's session well. PLAN: Cont as per PT POC. TREATMENT CODE/TIME: 9:10-9:30 (20) TA
[2019-03-18] MEDS: Normal Saline 1,000 ML 30 ML IV (11:37)
[2019-03-18] MEDS: MAGNESIUM SULFATE 4 GM/100 ML BAG IVPB (11:37)
--- NOTE | 2019-03-18 16:11 | PGE_ITS ---
Date of Service Date of service: 03/18/19 Time of Service: 16:11 Assessment and Plan (1) Anemia: Current visit: Yes Status: Chronic Evidence of Anemia of Chronic Disease by Iron studies, coexistant with Folic Acid deficiency. Heme negative. s/p 1 unit pRBC's. Recheck in am. Will need outpatient EGD and Colonoscopy. Continue empiric H2 kenny and carafate. Advance diet. Qualifiers: Anemia type: unspecified type Qualified Code(s): D64.9 - Anemia, unspecified (2) Hypomagnesemia: Current visit: Yes Status: Acute Very likely multi-factorial in the setting of chronic PPI use, Thiazide diuretic, and chronic alcohol use. Improved, but still rather low on am's labs. Continue PO + IV repletion, recheck in am, monitor on tele. (3) Syncopal episodes: Current visit: Yes Status: Chronic Per Patient, PCP is already trying to set him up with a Zio patch as outpatient. He will follow up with her for that. However, it is also entirely possible that this happened due to symptomatic anemia. (4) Excessive drinking alcohol: Current visit: Yes Status: Acute Continue CIWA (5) Essential hypertension: Current visit: No Status: Chronic Continue to hold HCTZ; continue ARB. (6) DVT prophylaxis: Current visit: Yes Status: Acute Continue to hold chemical prophylaxis at this time. Ensure SCDs, TEDs. Subjective Interval history since last seen: Mr Howard states he feels a lot better today. Denies dizziness or feeling like he might faint. Denies chest pain, shortness of breath, nausea, vomiting. Ambulated with PT today and was able to do the stairs. Exam Narrative Exam Narrative: General: middle-aged male, A&OX3, NAD HEENT: EOMI, MMM Heart: RRR, no m/r/g Lungs: CTAB GI: abdomen is soft, nontender, nondistended Extremities: no e/c/c BLE's, 1+ pedal pulses B Objective Objective Clinical Data: Abnormal lab results 03/17/19 03/17/19 03/18/19 Range/Units 08:55 20:25 07:16 RBC (4.50-6.00) m/cumm Hgb 8.4 L (13.5-17.5) g/dL Hct 25.8 L (40.0-50.0) % RDW (11.8-14.1) % Sodium 132 L (136-145) mmol/L Calcium 7.5 L (8.5-10.1) mg/dL Magnesium 1.5 L (1.8-2.4) mg/dL Crossmatch See Detail 03/18/19 Range/Units 07:16 RBC 2.79 L (4.50-6.00) m/cumm Hgb 8.1 L (13.5-17.5) g/dL Hct 24.7 L (40.0-50.0) % RDW 24.5 H (11.8-14.1) % Sodium (136-145) mmol/L Calcium (8.5-10.1) mg/dL Magnesium (1.8-2.4) mg/dL Crossmatch Vital Signs Temperature 36.4 C L 03/18/19 16:03 Temperature Source Tympanic 03/18/19 16:03 Pulse 95 H 03/18/19 16:03 Pulse Rhythm Regular 03/18/19 08:45 Pulse 109 H 03/16/19 19:20 Respiratory Rate 18 03/18/19 16:03 Respiratory Effort Non-Labored 03/18/19 08:45 Respiratory Depth Normal 03/18/19 08:45 Respiratory Pattern Normal 03/18/19 08:45 Blood Pressure 144/82 H 03/18/19 16:03 Blood Pressure Mean 80 03/16/19 19:16 Pulse Oximetry 98 03/18/19 16:03 Oxygen Delivery Method Room Air 03/18/19 16:03 Oxygen Flow Rate 0 03/18/19 16:03 Pain Level 0 03/18/19 16:03 Comment 03/18/19 06:00 Intake & Output 03/17/19 03/18/19 03/18/19 23:59 11:59 23:59 Intake Total 944 / 944 1682 Output Total 250 / 1350 Balance 694 / -406 1682 Weight 69.7 kg Intake: IV 913 / 913 Oral 660 / 660 770 / 1100 330 / 1100 Blood Product 284 / 284 Rbc Leuko Reduced Unit 284 / 284 [id number] Output: Urine 250 / 1350 Other: Urine Color Yellow Urine Appearance Clear Urine Odor Normal Voiding Methods Toilet Laboratory Results WBC 6.63 k/cumm (4.4-10.8) 03/18/19 07:16 RBC 2.79 m/cumm (4.50-6.00) L 03/18/19 07:16 Hgb 8.1 g/dL (13.5-17.5) L 03/18/19 07:16 Hct 24.7 % (40.0-50.0) L 03/18/19 07:16 MCV 88.5 fL (80-95) 03/18/19 07:16 MCH 29.0 pg (27.0-33.0) 03/18/19 07:16 MCHC 32.8 g/dL (32.0-36.0) 03/18/19 07:16 RDW 24.5 % (11.8-14.1) H 03/18/19 07:16 Plt Count 330 x1000/uL (130-400) 03/18/19 07:16 MPV 10.5 fL (8.0-11.0) 03/18/19 07:16 Immature Gran % 0.2 03/18/19 07:16 67.1 03/18/19 07:16 22.9 03/18/19 07:16 6.8 03/18/19 07:16 2.4 03/18/19 07:16 0.6 03/18/19 07:16 Absolute Neutrophils 4.45 k/cumm (1.2-6.7) 03/18/19 07:16 Absolute Lymphocytes 1.52 k/cumm (1.2-3.4) 03/18/19 07:16 Absolute Monocytes 0.45 k/cumm (0.11-0.7) 03/18/19 07:16 Absolute Eosinophils 0.16 k/cumm (0.0-0.7) 03/18/19 07:16 Absolute Basophils 0.04 k/cumm (0.0-0.2) 03/18/19 07:16 Rbc morph reviewed 03/17/19 06:58 RBC Morphology See below 03/17/19 06:58 Present 03/17/19 06:58 2+ 03/17/19 06:58 1+ 03/17/19 06:58 Present 03/17/19 06:58 3+ 03/17/19 06:58 2+ 03/17/19 06:58 1+ 03/16/19 17:35 Sodium 132 mmol/L (136-145) L 03/18/19 07:16 Potassium 4.0 mmol/L (3.5-5.1) 03/18/19 07:16 Chloride 99 mmol/L (98-107) 03/18/19 07:16 Carbon Dioxide 24.5 mmol/L (21.0-32.0) 03/18/19 07:16 8.5 mmol/L (3-11) 03/18/19 07:16 BUN 7 mg/dL (7-18) 03/18/19 07:16 0.89 mg/dL (0.70-1.30) 03/18/19 07:16 >= 60.00 (mL/min/1.73m2) 03/18/19 07:16 Glucose 99 mg/dL (70-100) 03/18/19 07:16 Calcium 7.5 mg/dL (8.5-10.1) L 03/18/19 07:16 Magnesium 1.5 mg/dL (1.8-2.4) L 03/18/19 07:16 Iron 70 ug/dL (50-175) 03/17/19 06:58 TIBC 187 ug/dL (250-450) L 03/17/19 06:58 Transferrin % Sat 37 % (20-55) 03/17/19 06:58 1683 ng/mL (8-388) H 03/17/19 06:58 0.6 mg/dL (0.2-1.0) 03/16/19 17:35 GGT 324 U/L (15-85) H 03/17/19 06:58 AST 89 U/L (15-37) H 03/16/19 17:35 ALT 64 U/L (12-78) 03/16/19 17:35 147 U/L (46-116) H 03/16/19 17:35 147 U/L (85-227) 03/17/19 06:58 7.3 g/dL (6.4-8.2) 03/16/19 17:35 2.9 g/dL (3.4-5.0) L 03/16/19 17:35 6.4 ng/mL (8.6-20.0) L 03/17/19 06:58 Yellow (Yellow) 03/17/19 05:20 Clear (Clear) 03/17/19 05:20 7.0 (5-8) 03/17/19 05:20 Ur Specific [place] 1.015 (1.005-1.025) 03/17/19 05:20 Negative mg/dL (Negative) 03/17/19 05:20 Negative mg/dL (Negative) 03/17/19 05:20 Negative (Negative) 03/17/19 05:20 Negative (Negative) 03/17/19 05:20 Negative (Negative) 03/17/19 05:20 0.2 EU/dL (Up TO 0.2) 03/17/19 05:20 Ur Leukocyte Esterase Negative (Negative) 03/17/19 05:20 Negative mg/dL (Negative) 03/17/19 05:20 Patient ABO/Rh B Positive 03/17/19 08:55 Antibody Screen Negative 03/17/19 08:55 Crossmatch See Detail 03/17/19 08:55
--- NOTE | 2019-03-18 17:51 | PDOC.CMPRO ---
- If Service Date Differs Date of service: 03/18/19 Time of Service: 17:52 Care Management Progress Note S/O:Sebastian was sitting up in bed when CM came to visit. He was open and friendly and answered questions readily. He stated that he has been feeling weak for several weeks and could not understand why. Now he does. He was able to shower today and stated that it felt good. He states he feels better but not yet well enough for discharge. A: Sebastian is a 68 year old man admitted to [facility] with hypomagnesemia on 03/17/19. P:Sebastian is receiving IV and PO magnesium, IV fluids and lab montioring. He remains on telemetry. CM to continue to provide support to patient and assess for needs and discharge planning. He will return home when ready but will need assistance with transportation.
[2019-03-19] MEDS: Normal Saline 1,000 ML 30 ML IV (00:47)
[2019-03-19 03:35] VITALS: BP 163/98; PULSE 92; RESP 19; TEMP 36.8; O2SAT 96
[2019-03-19] MEDS: Sucralfate 1 GM TAB PO ×2 (05:03→12:02)
[2019-03-19 07:41] VITALS: BP 153/83; PULSE 96; RESP 18; TEMP 36.4; O2SAT 97
[2019-03-19 07:42] LABS: Abs Immature Grans 0.02 k/cumm (0.0-0.09); Absolute Basophil Count 0.06 k/cumm (0.0-0.2); Absolute Eosinophil Count 0.16 k/cumm (0.0-0.7); Absolute Lymphocyte Count 1.41 k/cumm (1.2-3.4); Absolute Monocyte Count 0.49 k/cumm (0.11-0.7); Absolute Neutrophil Count 4.87 k/cumm (1.2-6.7); Basophils % 0.9; Eosinophils % 2.3; HCT 25.7 % (40.0-50.0); HGB 8.4 g/dL (13.5-17.5); Immature Grans % 0.3; Lymphocytes % 20.1; Mean Corp. HGB Concentration 32.7 g/dL (32.0-36.0); Mean Corpuscular Hemoglobin 29.2 pg (27.0-33.0); Mean Corpuscular Volume 89.2 fL (80-95); Mean Platelet Volume 10.1 fL (8.0-11.0); Neutrophils % 69.4; Platelet Count 339 x1000/uL (130-400); RBC 2.88 m/cumm (4.50-6.00); RBC Distribution Width 24.3 % (11.8-14.1); White Blood Cell Count 7.01 k/cumm (4.4-10.8)
[2019-03-19 07:48] LABS: Anion Gap 9.4 mmol/L (3-11); BUN 4 mg/dL (7-18); CO2 22.6 mmol/L (21.0-32.0); Calcium 7.2 mg/dL (8.5-10.1); Chloride 98 mmol/L (98-107); Glucose 104 mg/dL (70-100); Magnesium 1.6 mg/dL (1.8-2.4); Potassium 3.8 mmol/L (3.5-5.1); Sodium 130 mmol/L (136-145)
[2019-03-19 08:00] VITALS: PULSE 98
[2019-03-19] MEDS: Folic Acid 1 MG TAB PO (08:40)
[2019-03-19] MEDS: Thiamine 100 MG TAB PO (08:40)
[2019-03-19] MEDS: Losartan 50 MG TAB 100 MG PO (08:40)
[2019-03-19] MEDS: Multivitamin TAB 1 TAB PO (08:41)
[2019-03-19] MEDS: Amitriptyline 25 MG TAB PO (08:41)
[2019-03-19] MEDS: Magnesium Gluconate 500 MG TAB PO (08:50)
[2019-03-19] MEDS: MAGNESIUM SULFATE 2 GM/50 ML BAG IVPB (10:45)
--- NOTE | 2019-03-19 10:52 | PT.INTREAT ---
Date of service: 03/19/19 Time of Service: 09:55 PT Notes Inpatient Physical Therapy Treatment Note [facility] Date: 03/19/19 PRECAUTIONS:Standard SUBJECTIVE: Pt reports that he would like to go home today. OBJECTIVE: [] PAIN: [] BED MOBILITY/TRANSFERS Rolling L/R: [] Supine-sit SBA Sit-supine: [] Sit-stand: SBA Stand-sit: SBA GAIT Assistive Device: FWW Weight bearing: Full Assist: CGA/SBA Distance: Approx 150ft THEREX: Pt completed UE and LE ther ex as per flow sheet while in the seated position. STAIRS:Ascended and descended the PT stairs x1 utilizing 1 rail ASSESSMENT: Pt tolerated today's session well. PLAN: Cont as per PT POC. TREATMENT CODE/TIME: 9:55-10:10 (15) TA
[2019-03-19 11:21] VITALS: BP 148/90; PULSE 89; RESP 19; TEMP 36.7; O2SAT 98
--- NOTE | 2019-03-19 13:45 | PDOC.CMDIS ---
LACE Index Scoring Tool - Questions: Length of Stay (in days): 1 Acuity (Admit via E.D.?): Yes E.D. Visits: 1 - Answers: Total Score: 5 Risk of Readmission: Low Risk Care Management Discharge Reason for Hospitalization: Hypomagesemia Discharge Plan: Sebastian will return home via RCT coordinated by this process description writer; he is now registered for RCT transport. He will have new orders for [facility] PT ([facility]) and a FWW for ambulatory support at home-prescription filled through [facility] at patient request. CM also faxed [facility] referral to [facility]. Derrell will follow up with his PCP and plan of care as prescribed. Patient/Family Education Needs: Review discharge instructions, discuss Ask Me Three. Services Needed at Discharge: DME Agency (New FWW ), Home Delivered Meals (New referral [facility]), Home Health Care Services ([facility] PT-[facility] )
--- NOTE | 2019-03-19 13:45 | W.PM.DS.N ---
Date of service: 03/19/19 Time of Service: 13:45 DS: Diagnosis Discharge Diagnosis (1) Anemia: Status: Chronic (2) Hypomagnesemia: Status: Acute (3) Syncopal episodes: Status: Chronic (4) Excessive drinking alcohol: Status: Acute (5) Essential hypertension: Status: Chronic (6) Ambulatory dysfunction: Status: Acute Discharge Plan Disposition Patient Disposition: HOME Condition: Stable Discharge Details Chief Complaint: GenMedical Clinical Impression: Hypomagnesemia, Anemia Reason For Visit: HYPOMAGNESEMIA Admit Date/Time: 03/18/19 10:35 Admit Provider: Mathew Baltazar Attending Provider: Neela Ngo Primary Care Provider: Merle Michael ED Provider: Yosi Álvarez Hospital Course Hospital Course: Mr Howard is a 68 year old male with PMHx of hypertension, GERD, alcohol use/abuse, anxiety, who was a patient on [facility] hospitalist service from 03/16/19 through 03/19/19 for symptomatic anemia and hypomagnesemia, as well as ambulatory dysfuntion as well as reports of several syncopal episodes at home. The patient did not have active bleeding on this admission and was hemoccult negative several times. He did receive a transfusion of 1 unit of pRBC's on 03/17/19 for a hemoglobin of 6.8 with appropriate recovery of hemoglobin post transfusion. On anemia studies done prior to transfusion, there was evidence of both anemia of chronic disease and folate deficiency. His hemoglobin is 8.4 on the day of discharge. The patient was evaluated by surgery for his anemia and, because he is hemoccult negative, is felt to be appropriate for outpatient EGD and colonoscopy. It is felt that patient's several reported prior syncopal episodes had to do with symptomatic anemia at home. He was already being set up with an outpatient zio patch. This is still recommended as outpatient. His magnesium was 0.6 on the day of admission. This is thought to be multifactorial due to alcohol consumption, PPI therapy as well as being on HCTZ. He was monitored on telemetry and did not have any arrhythmic events. Magnesium was repleted both IV and PO. Magnesium levels will have to be monitored as outpatient - home health nursing is being asked to see the patient in follow up. PPI was exchanged for H2 kenny. HCTZ is discontinued on discharge. Ambulatory dysfunction had improved significantly with repletion of magnesium and post-transfusion; however, the patient is felt to require a front-wheeled walker and would benefit from home health PT, per our inpatient physical therapy. Patient's alcohol abuse was discussed at length - he is not ready to quit drinking, but is interested in decreasing his intake. He will follow up with his PCP if he feels he needs assistance, he stated. He is not withdrawing from alcohol at the time of discharge. At this point, patient is medically stable for discharge home with home health nursing and PT. Care for the patient on day of discharge as well as completion of discharge summary took 45 minutes. Home Meds and New Rx's Prescriptions: New multivitamin [Multiple Vitamins] Tablet 1 tab PO DAILY Qty: 30 RF: 0 sucralfate 1 gram Tablet 1 g PO Q6H Qty: 120 RF: 0 ranitidine HCl 150 mg Tablet 150 mg PO BID Qty: 60 RF: 0 folic acid 1 mg Tablet 1 mg PO DAILY Qty: 30 RF: 0 magnesium gluconate 27 mg magnesium (500 mg) Tablet 1,000 mg PO BID Qty: 60 RF: 0 thiamine mononitrate (vit B1) [Vitamin B-1 (mononitrate)] 100 mg Tablet 100 mg PO DAILY Qty: 30 RF: 0 Continued triamcinolone acetonide 0.025 % cream 1 applic Topical BID Qty: 1 RF: 4 losartan 100 mg tablet 100 mg PO DAILY Qty: 90 RF: 4 azelastine 137 mcg (0.1 %) aerosol,spray 1 spray NS BID Qty: 200 RF: 2 sildenafil [Viagra] 100 MG tablet 100 mg PO PRN Qty: 6 RF: 3 amitriptyline 25 mg tablet 25 mg PO DAILY Qty: 90 RF: 4 Discontinued esomeprazole magnesium 40 mg capsule,delayed release(DR/EC) 40 mg PO DAILY Qty: 90 RF: 2 hydrochlorothiazide 12.5 mg tablet 12.5 mg PO DAILY Qty: 90 RF: 4 Discharge Instructions Instructions: Hypomagnesemia (DC), Anemia (DC), Alcohol Use Disorder (DC) Additional Instructions: Take your medications as prescribed. Consider decreasing your alcohol intake. Use walker to ambulate. Return to the hospital with any fever, bleeding, chest pain, or shortness of breath. Home health nursing to collect blood work on Wednesday. Care Plan Goals: Home with home health nursing and PT. Stand Alone Forms: Nursing Discharge Form Referrals: Merle Michael MD [Primary Care Provider] - Mitzi Tapia MD [ [facility] STAFF PHYSICIAN] - Activity:: Ambulate with a walker Equipment/Supplies:: Walker Diet:: As Tolerated Discharge Orders Discharge Orders: Discharge Order (Routine); Ordered 03/19/19 Ordered By: Neela Ngo Exam Narrative Exam Narrative: General: middle-aged male, A&OX3, NAD HEENT: EOMI, MMM Heart: RRR, no m/r/g Lungs: CTAB GI: abdomen is soft, nontender, nondistended Extremities: no e/c/c BLE's, 1+ pedal pulses B DS: Data Vitals/I&O Vitals and I&O: Vital Signs Temperature 36.4 C L 03/19/19 07:41 Temperature Source Tympanic 03/19/19 07:41 Pulse 98 H 03/19/19 08:00 Pulse Rhythm Regular 03/19/19 08:20 Pulse 109 H 03/16/19 19:20 Respiratory Rate 18 03/19/19 07:41 Respiratory Effort Non-Labored 03/19/19 08:20 Respiratory Depth Normal 03/19/19 08:20 Respiratory Pattern Normal 03/19/19 08:20 Blood Pressure 153/83 H 03/19/19 07:41 Blood Pressure Mean 80 03/16/19 19:16 Pulse Oximetry 97 03/19/19 07:41 Oxygen Delivery Method Room Air 03/19/19 07:41 Oxygen Flow Rate 0 03/19/19 07:41 Pain Level 0 03/18/19 19:30 Comment 03/18/19 06:00 Intake & Output 03/18/19 03/19/19 03/19/19 23:59 11:59 23:59 Intake Total 570 / 2253 1082 / 1336 254 / 1336 Output Total 1050 / 1325 275 / 1325 Balance 570 / 2253 - Weight 69.5 kg Intake: IV 632 / 646 14 / 646 Oral 570 / 1340 450 / 690 240 / 690 Output: Urine 1050 / 1325 275 / 1325 Other: Urine Color Light Kalina Light Kalina Urine Appearance Clear Clear Clear Urine Odor Normal Voiding Methods Toilet Urinal Urinal Completed studies during hospitalization [Text1]: CT head 03/16/19: No acute intracranial pathology. CXR 03/16/19: Mild hyperinflation without airspace consolidation. Labs on day of discharge: Labs from last 24 hours 03/19/19 03/19/19 07:08 07:08 WBC 7.01 RBC 2.88 L Hgb 8.4 L Hct 25.7 L MCV 89.2 MCH 29.2 MCHC 32.7 RDW 24.3 H Plt Count 339 MPV 10.1 Immature Gran % 0.3 Neutrophils % 69.4 Lymphocytes % 20.1 Monocytes % 7.0 Eosinophils % 2.3 Basophils % 0.9 Absolute Neutrophils 4.87 Absolute Lymphocytes 1.41 Absolute Monocytes 0.49 Absolute Eosinophils 0.16 Absolute Basophils 0.06 Sodium 130 L Potassium 3.8 Chloride 98 Carbon Dioxide 22.6 Anion Gap 9.4 BUN 4 L Creatinine 0.80 Estimated GFR/1.73 m2 >= 60.00 Glucose 104 H Calcium 7.2 L Magnesium 1.6 L PFSH Medical History (Updated 03/19/19 @ 13:46 by Neela Ngo MD) Allergic rhinitis (Chronic) Anxiety (Chronic 06/19/13) Chronic sinusitis (Chronic) Cluster headache syndrome (Chronic 05/01/13) Collapse of nasal valve (Inactive 02/28/18) Deviated nasal septum (Chronic 02/28/18) Essential hypertension (Chronic 08/22/13) Excessive drinking alcohol (Acute) Fracture of left ankle (Inactive) Heart burn (Acute) 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 Father No problems noted. Sister No problems noted. Sister No problems noted. Brother Depression Brother No problems noted. Social History Smoking/Tobacco Use Status: Current every day Tobacco Type: cigarettes Second Hand Exposure: No Alcohol Intake: current Alcohol Intake frequency: 3 or more drinks per day Alcohol type: hard liquor Drug use: Current Sobriety Substance use type: does not use Caregiver/Support person: No Housing: house Communication Needs: Hard of Hearing Pets and animals: No Sexually active: No Do you think of yourself as: straight/heterosexual Current gender identity: male What is your relationship status?: How often do you talk on the phone with friends or family?: once per week How often do you get together with friends or relatives?: decline to answer How often do you attend latter day or confucianism services?: decline to answer Do you belong to any clubs or organized social groups?: no Panel score (0-1 are the most socially isolated patients): 0 What type of physical activity do you participate in: none Patito/Orthodoxy: No preference Special patito needs: No Seatbelt use: always Helmet use: No Drive intox or ride w/intox route driver: No
[2019-03-19 13:55] VITALS: PULSE 103
--- NOTE | 2019-03-19 14:05 | HHF2F_ITS ---
1. Encounter Date and Reason I certify that RAUL DA SILVA was seen by Neela Ngo on 03/19/19 and that I had a [id number] encounter with this patient that meets the physician face to face encounter requirements. 2. Clinical Findings Supporting Skilled Need and Homebound Status I certify that home health services are medically necessary, include either intermittent care home and/or physical/speech therapy, and that this patient is homebound in that absences from the home require considerable and taxing effort and are infrequent or of short duration, or are attributable to the need to receive medical care. [X] (a) Attached documentation from encounter provides clinical findings supporting skilled need and homebound status (including what assistance patient requires to leave the home). The encounter with the patient was in whole, or in part, for the following medical condition, which is the primary reason for home health care: HYPOMAGNESEMIA Nursing Home: Hypomagnesemia, anemia, syncopal episodes; CBC, BMP, magnesium to be collected on 03/22/19 - results to Merle Michael Physical Therapy: eval and treat Homebound: unable to leave home without assistance 3. Certification and Authentication I certify that I composed the above information based on my clinical judgement relating to this patient's medical condition and, if applicable, clinical findings communicated to me by the NPP or inpatient physician who performed the Home Health Referral. All further orders will be obtained through _Merle Michael (Community Based Physician - PCP)
[2019-03-20 10:11] LABS: Haptoglobin 186 mg/dL (32-197)
--- NOTE | 2019-03-20 17:00 | PT.INDS ---
Date of service: 03/20/19 PT Notes Inpatient Physical Therapy Discharge Summary Dates: 03/20/2019 Dates of Service: 03/17/2019 through 03/19/2019 This is a clinical summary of care provided on the duration of dates listed above. No charge was made in the completion of this documentation. Referring Doctor: Mathew Baltazar MD PT Orders: PT CONSULT: Evaluate and treat for bilateral lower extremity weakness Precautions: Fall. Standard. Activity as tolerated. Patient Profile/Admitting Diagnosis: Patient is a 68-year-old male who presented to the ED on 03/16/2019 with chief complaints of week-long lightheadedness, severe bilateral leg weakness with increased trouble walking and negotiating stairs. Patient was diagnosed with hypomagnesemia, hypokalemia, anemia, and heartburn. Referral for physical therapy was made in order to address impairment in strength, mobility level, and activity tolerance. 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 he has a flight of stairs to get onto the second floor of the house where he has his bedroom and bathroom. He states that it has become difficult to manage the steps these past couple of weeks. He is independent with all aspects of ADLs without the need for an assistive ambulatory device nor adaptive equipment. Current Functional Limitations: need for assistance for all transfer and ambulation task performance Equipment Owned/DME: None Subjective: NT Objective: General Observation: NT Mental Status: NT Pain:NT Vital Signs: NT ROM: Right Upper Extremity: Shoulder Flexion WFL. Shoulder abduction WFL. Elbow flexion WFL. Wrist flexion WFL. Functional opening and closing of hand WFL. Left Upper Extremity: Shoulder Flexion WFL. Shoulder abduction WFL. Elbow flexion WFL. Wrist flexion WFL. Functional opening and closing of hand WFL. Right Lower Extremity: Hip flexion WFL. Hip abduction WFL. Knee flexion WFL. Ankle dorsiflexion WFL. Ankle plantarflexion WFL. Left Lower Extremity: Hip flexion WFL. Hip abduction WFL. Knee flexion WFL. Ankle dorsiflexion WFL. Ankle plantarflexion WFL. Strength: Right Upper Extremity: Shoulder flexors 4/5. Shoulder abductors 4-/5. Elbow flexors 5/5. Elbow extensors 4/5. Principal Technologist strong. Left Upper Extremity: Shoulder flexors 4/5. Shoulder abductors 4-/5. Elbow flexors 5/5. Elbow extensors 4/5. Principal Technologist strong. Right Lower Extremity: Hip flexors 4-/5. Hip abductors 4-/5. Knee flexors 4/5. Knee extensors 4/5. Ankle dorsiflexors 4/5. Ankle plantarflexors 4/5. Left Lower Extremity:Hip flexors 4-/5. Hip abductors 4-/5. Knee flexors 4-/5. Knee extensors 3+/5. Ankle dorsiflexors 4/5. Ankle plantarflexors 4/5. Sensation: Intact as to pain and pressure on bilateral lower extremities. Bed Mobility/Transfers: Rolling SBA Supine to sit SBA Sit to supine SBA Sit to stand CGA Stand to sit CGA Bed to chair CGA Chair to bed CGA Gait: Patient tolerated in room level surface ambulation of up to 150 feet using front-wheeled walker with SBA using step-through gait pattern. Decreased gait velocity noted due to weakness and impaired activity tolerance. Balance: Static Sitting: Good Dynamic Sitting: Good Static Standing: Fair Dynamic Standing: Fair Assessment: Patient is a 68-year-old male diagnosed with hypomagnesemia, hypokalemia, anemia, and heartburn. Patient presents with clinical signs and symptoms consistent with current/admitting diagnoses that have resulted to mobility limitations, gait instability, generalized weakness, and impairment of motor control as demonstrated by the following impairment level findings: 1. Decreased strength to B LE major muscle groups 2. Impaired standing balance 3. Impaired activity tolerance Impairments are contributing to the following functional limitations: 1. Decreased independence bed mobility skills 2. Decreased independence with transfers 3. Inability to safely ambulate without assistive device and physical assistance 4. Increase completion time for mobility ADL performance 5. Increased fall risk 6. Inability to negotiate steps alone safely Goals: Goals X1 week 1. Supine-Sit independent NOT MET 2. Sit-Supine independent NOT MET 3. Sit-Stand independent NOT MET 4. Stand-Sit independent NOT MET 5. Bed-Chair independent NOT MET 6. Chair-Bed independent NOT MET 7. Independent gait on level surface with use of least restrictive device for at least 200 feet without report of pain nor dyspnea NOT MET 8. Independent stair negotiation while holding onto bilateral rails for at least 15 steps without report of pain nor dyspnea NOT MET 9. Independent with home exercise program NOT MET 10. Good static and dynamic standing balance/tolerance NOT MET DISCHARGE RECOMMENDATIONS: May need front wheeled walker for home. Patient will benefit from home health PT services in order to progress mobility level using least restrictive assistive ambulatory device/using no device, assess home safety, identify additional equipment needs, and establish a functional maintenance program that will increase ability of patient to remain at home. TREATMENT CODE/TIME: 40115 x 28 minutes beginning at 14:16 p.m. Thank you very much for this referral. Fiona Weeks PT, DPT, CLT [facility]
== END 2019-03-19 14:52 | disposition home or self-care (01) | DRG 641 ==
LOC: ER 19:06 → MS 19:41
PROVIDERS: Internal Medicine; Nurse Practitioner; Admitting Provider Internal Medicine; Emergency Provider Emergency Medicine; PCP Family Medicine; Visit Provider Internal Medicine
DX: E83.42 Hypomagnesemia (principal); D64.9 Anemia, unspecified; R55 Syncope and collapse; F10.10 Alcohol abuse, uncomplicated; I10 Essential (primary) hypertension; R26.2 Difficulty in walking, not elsewhere classified; D63.8 Anemia in other chronic diseases classified elsewhere; D52.9 Folate deficiency anemia, unspecified; R53.1 Weakness
CPT/HCPCS: 36415; 36430; 80048; 80053; 85652; 86850; 86900; 86901; 86920; 93005; 96365; 96366; 97162; 97530; 99220; 99232; 99233; 99239; 99285; J1650; 70450; 71046; 81003; 82607; 82728; 82746; 82977; 83010; 83540; 83550; 83615; 83735; 84439; 84443; 84480; 85014; 85018; 85025; 93010; 99226; 99284; G0378; J3475; P9016

== ENCOUNTER 2019-03-27 01:57 | Outpatient (CLI) | payer MEDICARE, MEDICAID, SELFPAY ==
--- NOTE | 2019-04-25 13:35 | ZIOP_ITS ---
O MONITOR DATE OF DICTATION April 24, [address] 14 days, March 27- April 10, 2019 Baseline rhythm sinus. Rare single PAC. 20 bursts SVT, longest 19 beat duration, fastest 214 beats per minute. No atrial fibrillation. Rare single PVC. No VT. No bradycardia or block. 9 triggered events, all occurring during sinus rhythm. Average heart rate sinus 65 beats per minute, range 108-154 beats per minute. Wenceslao Melgar M.D. TERESE/jimbo T - 04/25/19
== END 2019-03-27 02:17 ==
PROVIDERS: PCP Family Medicine; Visit Provider Family Medicine
DX: R55 Syncope and collapse (principal); I47.1 Supraventricular tachycardia
CPT/HCPCS: 0296T

== ENCOUNTER 2019-03-29 11:33 | Outpatient (CLI) | payer MEDICARE, MEDICAID, SELFPAY ==
[2019-03-29 12:53] LABS: Abs Immature Grans 0.02 k/cumm (0.0-0.09); Absolute Basophil Count 0.05 k/cumm (0.0-0.2); Absolute Eosinophil Count 0.05 k/cumm (0.0-0.7); Absolute Monocyte Count 0.58 k/cumm (0.11-0.7); Absolute Neutrophil Count 6.79 k/cumm (1.2-6.7); Basophils % 0.6; Eosinophils % 0.6; HCT 31.4 % (40.0-50.0); HGB 10.3 g/dL (13.5-17.5); Immature Grans % 0.2; Lymphocytes % 15.7; Mean Corp. HGB Concentration 32.8 g/dL (32.0-36.0); Mean Corpuscular Hemoglobin 30.3 pg (27.0-33.0); Mean Corpuscular Volume 92.4 fL (80-95); Mean Platelet Volume 9.8 fL (8.0-11.0); Monocytes % 6.5; Neutrophils % 76.4; Platelet Count 426 x1000/uL (130-400); RBC Distribution Width 23.7 % (11.8-14.1); White Blood Cell Count 8.89 k/cumm (4.4-10.8)
[2019-03-29 12:59] LABS: Iron 146 ug/dL (50-175); Total Iron Binding Capacity 186 ug/dL (250-450); Transferrin Sat 78 % (20-55)
[2019-03-29 13:09] LABS: ALT 64 U/L (12-78); AST 92 U/L (15-37); Albumin 3.2 g/dL (3.4-5.0); Alkaline Phosphatase 153 U/L (46-116); Anion Gap 12.2 mmol/L (3-11); BUN 10 mg/dL (7-18); Bilirubin, Total 0.7 mg/dL (0.2-1.0); CO2 27.8 mmol/L (21.0-32.0); CREATININE 0.98 mg/dL (0.70-1.30); Calcium 9.2 mg/dL (8.5-10.1); Chloride 98 mmol/L (98-107); Glucose 134 mg/dL (70-100); Magnesium 1.2 mg/dL (1.8-2.4); Potassium 4.1 mmol/L (3.5-5.1); Sodium 138 mmol/L (136-145); TSH 0.81 uIU/mL (0.36-3.74); Total Protein 7.3 g/dL (6.4-8.2)
[2019-03-30 06:15] LABS: Vitamin D 25 Total 21.7 ng/ml (30-100)
== END 2019-03-29 11:53 ==
PROVIDERS: PCP Family Medicine; Visit Provider Internal Medicine
DX: E83.42 Hypomagnesemia (principal); E87.6 Hypokalemia; F10.10 Alcohol abuse, uncomplicated; R55 Syncope and collapse; E83.51 Hypocalcemia; R50.9 Fever, unspecified; R00.0 Tachycardia, unspecified; D64.9 Anemia, unspecified
CPT/HCPCS: 36415; 80053; 82306; 83540; 83550; 83735; 84443; 85025

== ENCOUNTER → 2019-04-03 13:18 | Outpatient (BNVA) | payer MEDICARE, MEDICAID, SELFPAY | PROVIDERS: PCP Family Medicine; Referring Provider Family Medicine; Visit Provider Physical Therapy Assistant | DX: D64.9 Anemia, unspecified (principal); I10 Essential (primary) hypertension | CPT/HCPCS: 99213 ==

== ENCOUNTER → 2019-04-13 12:34 | Outpatient (BNVA) | payer MEDICARE, MEDICAID, SELFPAY | PROVIDERS: PCP Family Medicine; Referring Provider Family Medicine; Visit Provider Psychiatry & Neurology Neurology | DX: R55 Syncope and collapse (principal); G25.0 Essential tremor; I10 Essential (primary) hypertension; F10.10 Alcohol abuse, uncomplicated; G62.9 Polyneuropathy, unspecified | CPT/HCPCS: 99205; 99215 ==

== ENCOUNTER 2019-04-24 18:08 | Outpatient (CLI) | payer MEDICARE, MEDICAID, SELFPAY | END 2019-04-24 18:28 | PROVIDERS: PCP Family Medicine; Referring Provider Family Medicine; Visit Provider Internal Medicine Interventional Cardiology | DX: R55 Syncope and collapse (principal); I47.1 Supraventricular tachycardia | CPT/HCPCS: 0298T ==

== ENCOUNTER 2019-05-26 11:57 | Outpatient (CLI) | payer MEDICARE, MEDICAID, SELFPAY ==
[2019-05-26 12:51] LABS: HCT 39.2 % (40.0-50.0); HGB 13.6 g/dL (13.5-17.5); Mean Corp. HGB Concentration 34.7 g/dL (32.0-36.0); Mean Corpuscular Hemoglobin 33.2 pg (27.0-33.0); Mean Corpuscular Volume 95.6 fL (80-95); Platelet Count 249 x1000/uL (130-400); RBC Distribution Width 13.4 % (11.8-14.1); White Blood Cell Count 7.27 k/cumm (4.4-10.8)
[2019-05-26 13:03] LABS: Hemoglobin A1C 5.6 % (4.5-6.2)
[2019-05-26 13:17] LABS: ALT 157 U/L (16-63); AST 194 U/L (15-37); Albumin 3.6 g/dL (3.4-5.0); Alkaline Phosphatase 124 U/L (46-116); Anion Gap 16.9 mmol/L (3-11); BUN 14 mg/dL (7-18); Bilirubin, Total 0.9 mg/dL (0.2-1.0); CO2 24.1 mmol/L (21.0-32.0); Calcium 9.9 mg/dL (8.5-10.1); Chloride 96 mmol/L (98-107); Glucose 111 mg/dL (70-100); Magnesium 1.3 mg/dL (1.8-2.4); Potassium 3.6 mmol/L (3.5-5.1); Sodium 137 mmol/L (136-145); Total Protein 7.7 g/dL (6.4-8.2)
[2019-05-26 13:35] LABS: GGT 880 U/L (15-85)
[2019-05-31 10:58] LABS: Immunotyping, Serum Interpretation:
[2019-06-07 11:34] LABS: Albumin 53.7 % (55.8-66.1); Comment SEE COMMENTS; Total Protein 7.5 g/dl (6.3-8.2)
== END 2019-05-26 12:17 ==
PROVIDERS: PCP Family Medicine; Visit Provider Family Medicine
DX: F10.99 Alcohol use, unspecified with unspecified alcohol-induced disorder (principal); G62.9 Polyneuropathy, unspecified; E83.42 Hypomagnesemia; R73.9 Hyperglycemia, unspecified
CPT/HCPCS: 36415; 80053; 85027; 82977; 83036; 83735; 84165; 86320

== ENCOUNTER 2021-04-21 10:29 | Outpatient (CLI) | payer MEDICARE, MEDICAID, SELFPAY ==
[2021-04-21 12:20] LABS: HCT 41.2 % (40.0-50.0); HGB 14.1 g/dL (13.5-17.5); MCH 31.1 pg (27.0-33.0); MCHC 34.2 % (32.0-36.0); MCV 90.7 fL (80-95); MPV 10.6 fL (8.0-11.0); Platelet Count 323 10^3/uL (130-400); RBC 4.54 10^6/uL (4.36-5.78); RDW 13.4 % (11.8-14.1); RDW-SD 45.1 fL; WBC 6.65 10^3/uL (4.4-10.8)
[2021-04-21 12:32] LABS: INR 0.9 (0.9-1.1); Prothrombin Time 9.4 sec (9.3-11.0)
[2021-04-21 13:02] LABS: Vitamin D 25 Total 59.5 ng/mL (30-100)
[2021-04-21 13:05] LABS: ALT 18 U/L (16-63); AST 21 U/L (15-37); Albumin 3.9 g/dL (3.4-5.0); Alkaline Phosphatase 75 U/L (46-116); Anion Gap 8.6 mmol/L (3-11); BUN 15 mg/dL (7-18); Bilirubin, Total 0.4 mg/dL (0.2-1.0); CO2 29.4 mmol/L (21.0-32.0); Calcium 9.4 mg/dL (8.5-10.1); Chloride 97 mmol/L (98-107); Glucose 103 mg/dL (74-106); Magnesium 1.7 mg/dL (1.8-2.4); Potassium 4.4 mmol/L (3.5-5.1); Sodium 135 mmol/L (136-145); Total Protein 7.2 g/dL (6.4-8.2); Vitamin B12 397 pg/mL (193-986)
== END 2021-04-21 10:30 | disposition home or self-care (01) ==
LOC: LOS 10:30
PROVIDERS: PCP Family Medicine; Visit Provider Family Medicine
DX: E83.42 Hypomagnesemia (principal); K70.30 Alcoholic cirrhosis of liver without ascites
CPT/HCPCS: 36415; 80053; 82306; 85027; 82607; 83735; 85610

== ENCOUNTER 2021-12-29 04:44 | Outpatient (CLI) | payer MEDICARE, MEDICAID, SELFPAY ==
[2021-12-29 12:51] LABS: ALT 15 U/L (16-63); AST 17 U/L (15-37); Albumin 3.8 g/dL (3.4-5.0); Alkaline Phosphatase 49 U/L (46-116); Anion Gap 8.2 mmol/L (3-11); BUN 12 mg/dL (7-18); Bilirubin, Total 0.5 mg/dL (0.2-1.0); CO2 30.8 mmol/L (21.0-32.0); CREATININE 0.9 mg/dL (0.70-1.30); Calcium 8.7 mg/dL (8.5-10.1); Calculated LDL 70 mg/dL (<100); Chloride 97 mmol/L (98-107); Cholesterol 150 mg/dL (<200); Glucose 90 mg/dL (74-106); HDL Cholesterol 64 mg/dL (40-60); Potassium 3.4 mmol/L (3.5-5.1); Sodium 136 mmol/L (136-145); Total Protein 6.9 g/dL (6.4-8.2); Triglyceride 81 mg/dL (<150)
== END 2021-12-29 04:45 | disposition home or self-care (01) ==
LOC: LBO 04:44
PROVIDERS: PCP Family Medicine; Visit Provider Family Medicine
DX: K70.30 Alcoholic cirrhosis of liver without ascites (principal); I10 Essential (primary) hypertension
CPT/HCPCS: 36415; 80053; 80061

== ENCOUNTER 2021-12-30 13:35 | Outpatient (REF) | payer MEDICARE, MEDICAID, SELFPAY ==
[2021-12-30 17:29] LABS: Lab Add On Test DONE
[2021-12-30 19:28] LABS: Magnesium 1.6 mg/dL (1.8-2.4)
== END 2021-12-30 13:36 | disposition home or self-care (01) ==
LOC: LBN 13:35
PROVIDERS: PCP Family Medicine; Visit Provider Family Medicine
DX: E83.42 Hypomagnesemia (principal)
CPT/HCPCS: 83735

== ENCOUNTER 2022-03-02 13:26 | Outpatient (CLI) | payer MEDICARE, MEDICAID, SELFPAY ==
[2022-03-02 15:03] LABS: Magnesium 1.5 mg/dL (1.8-2.4)
== END 2022-03-02 13:27 | disposition home or self-care (01) ==
LOC: LBO 13:34
PROVIDERS: PCP Family Medicine; Visit Provider Family Medicine
DX: E83.42 Hypomagnesemia (principal)
CPT/HCPCS: 36415; 83735

== ENCOUNTER 2022-05-05 14:53 | Outpatient (CLI) | payer MEDICARE, MEDICAID, SELFPAY ==
--- NOTE | 2022-05-05 13:15 | DI.RAD_ITS ---
Exam(s) XR SHOULDER LT COMPLETE 2+V EXAM: XR SHOULDER LT COMPLETE 2+V CLINICAL HISTORY: left shoulder pain TECHNIQUE: COMPARISON: No exams were available for comparison FINDINGS: Two views were obtained. There is soft tissue calcification which lies adjacent to the greater tuber osity of the humerus consistent with association with supraspinatus tendon. There is moderate narrow ing of the cartilaginous joint space of the glenohumeral joint. There is prominent marginal osteophy te formation of the inferior aspect of the humeral head and glenoid. There are moderate hypertrophic degenerative changes of the AC joint. IMPRESSION: Severe DJD glenohumeral joint. RADIATION DOSE DELIVERED: Total DLP
== END 2022-05-05 14:54 | disposition home or self-care (01) ==
LOC: DIORS 14:54
PROVIDERS: PCP Family Medicine; Referring Provider Family Medicine; Visit Provider Student in an Organized Health Care Education/Training Program
DX: M19.012 Primary osteoarthritis, left shoulder; M67.441 Ganglion, right hand
CPT/HCPCS: 20610; 99204; 73030; J1030

== ENCOUNTER 2022-07-06 13:20 | Outpatient (CLI) | payer MEDICARE, MEDICAID, SELFPAY ==
--- NOTE | 2022-07-06 13:05 | DI.RAD_ITS ---
Exam(s) XR WRIST RT COMPLETE EXAM: XR WRIST RT COMPLETE CLINICAL HISTORY: cysts. TECHNIQUE: 2D digital imaging was performed. Three views. COMPARISON: No exams were available for comparison FINDINGS: BONES: No acute fracture is present. No bony destructive lesion is seen. JOINTS: Severe degenerative changes at the scaphoid trapezium trapezoid joint. Prominent periarticul ar spurring and sclerosis. [id number] degenerative changes at the trapezium 1st metacarpal kian nt. There is some dorsal tilt of the lunate. There is no widening of the scapholunate distance. SOFT TISSUE: Focal dorsal swelling. Question additional ventral area of soft tissue swelling. IMPRESSION: Severe degenerative changes at the scaphoid trapezium trapezoid joints. Dorsal and ventral areas foc al soft tissue swelling. DATA REPOSITORY: RADIATION DOSE DELIVERED:
== END 2022-07-06 13:21 | disposition home or self-care (01) ==
LOC: DIORS 13:21
PROVIDERS: PCP Family Medicine; Referring Provider Family Medicine; Visit Provider Physician Assistant Surgical
DX: M67.441 Ganglion, right hand (principal)
CPT/HCPCS: 99214; 73110

== ENCOUNTER → 2022-07-15 02:28 | Outpatient (CLI) | payer MEDICARE, MEDICAID, SELFPAY ==
--- NOTE | 2022-07-15 06:45 | DI.MRI_ITS ---
Exam(s) MR UPPER JOINT RT WO EXAM: MR UPPER JOINT RT WO CLINICAL HISTORY: PAIN, GANGLION CYST R WRIST,[id number]. TECHNIQUE: Multiplanar multisequence MRI was performed. COMPARISON: Comparison x-rays 07/06/2022. FINDINGS: The examination is limited due to patient motion artifact. BONES: There is no fracture or contusion pattern. JOINTS: There are degenerative signal changes seen at the articulation of the scaphoid and the trapez ium, the 1st CMC joint and the 2nd CMC joint. Marrow edema is seen in the proximal 3rd metacarpal kat ne. Subchondral cysts are seen in the distal radius, pisiform, medial triquetrum and trapezium bones . TENDONS: Flexors: Unremarkable. Extensors: There is fluid seen surrounding the extensor digitorum tendons and the tendons for both th e extensor carpi radialis brevis and longus muscles. MUSCLES: Unremarkable. MEDIAN NERVE: Unremarkable on this noncontrast examination. ULNAR NERVE: Unremarkable on this noncontrast examination. SOFT TISSUES: There is a cystic structure on the dorsum of the wrist overlying the extensor digitorum tendons. It appears to be separate from and superficial to the tendons. It measures 0.5 AP by 1.3 transverse by 2.8 craniocaudad. There is a 0.7 x 0.4 cm ganglion cyst anterior to the ulna. LIGAMENTS: Unremarkable. TRIANGULAR FIBROCARTILAGE: Unremarkable. OTHER: IMPRESSION: 1. Ganglion cyst seen in the wrist. The largest is on the dorsum of the wrist overlying the extensor digitorum tendons and measures 0.5 x 1.3 x 2.8 cm. There is a 2nd smaller ganglion cyst anterior to t he ulna measuring 0.7 x 0.4 cm. 2. Degenerative-type signal seen within the wrist. 3. Fluid seen surrounding the extensor digitorum tendons and tendons for the extensor carpi radialis brevis and longus muscles. This may represent a tenosynovitis. DATA REPOSITORY:
== END ==
PROVIDERS: PCP Family Medicine; Visit Provider Student in an Organized Health Care Education/Training Program
DX: M67.441 Ganglion, right hand (principal)
CPT/HCPCS: 73221

== ENCOUNTER 2022-08-05 12:55 | Day surgery (SDC) | payer MEDICARE, MEDICAID, SELFPAY ==
--- NOTE | 2022-08-05 12:29 | W.PM.DSUDISC ---
Date of service: 08/05/22 Time of Service: 13:45 Discharge Plan Disposition Patient Disposition: HOME Condition: Good Discharge Details Reason For Visit: Right hand ganglion cyst Attending Provider: Garret Byers Primary Care Provider: Mathew Calderon Home Meds and New Rx's Prescriptions: New acetaminophen 500 mg tablet 500 mg PO Q6H PRN (Reason: pain) Qty: 60 2RF ibuprofen 600 mg tablet 600 mg PO TID PRN (Reason: pain) Qty: 60 0RF Continued Boost Calorie Smart Liquid See Rx Instructions .ROUTE BID Qty: 500 6RF Rx Instructions: 12/13/19 decreased dose to one/day - not sent chlorthalidone 50 mg tablet 50 mg PO DAILY Qty: 90 3RF losartan 100 mg tablet 100 mg PO DAILY Qty: 90 4RF sildenafil [Viagra] 100 mg tablet 100 mg PO PRN Qty: 30 0RF Rx Instructions: take one hour prior to intercourse naltrexone 50 mg tablet 50 mg PO DAILY Qty: 90 1RF amitriptyline 25 mg tablet 50 mg PO DAILY triamcinolone acetonide 0.025 % cream 1 applic Topical BID PRN esomeprazole magnesium 20 mg capsule,delayed release(DR/EC) 1 cap PO DAILY Label Comments: TAKE 1 CAPSULE BY MOUTH DAILY Discharge Instructions Additional Instructions: Ganglion Cyst and carpal tunnel release Discharge Instructions Activity: You may use your fingers for light activity. You should limit any excessive motion or forceful gripping until the sutures have been removed. Dressings: You should keep the initial surgical dressing in place for at least 3 days. You may remove your dressings and get the wound wet after 3 days. You should keep the dressings and the wound clean at all times. You may keep the initial dressing in place until your follow-up but keep the wound covered with light gauze until the sutures are removed. Medications: - You have been prescribed Tylenol and Ibuprofen around the clock as prescribed. Follow-up: 7-10 days for wound check and suture removal. Stand Alone Forms: Modesta Cunningham Tunnel Release Activity:: Elevate Remove Dressings/Wound Care:: 72 hours Shower/Bathe:: 72 hours Activity:: Activity as Tolerated Diet:: As Tolerated
[2022-08-05 13:22] VITALS: BP 154/97; PULSE 98; RESP 18; TEMP 36.6; O2SAT 98
--- NOTE | 2022-08-05 13:56 | W.ANESPRE ---
General Info Date of Service Date Performed: 08/05/22 Height: 5 ft 4 in Weight: 67.7 kg Body Mass Index (BMI): 25.6 Surgical Procedure: Operation Date: 08/05/22 14:55 Proposed Procedure Side Surgeon p Wrist Cyst Excision Right Garret Byers MD s Wrist ECTR Right Garret Byers MD Meds Allergies and Home Medications Allergies Allergy/AdvReac Type Severity Reaction Status Date / Time lisinopril AdvReac Intermediate Mouth Verified 08/05/22 13:12 blisters/cough Home Medication Medication Instructions Recorded food supplemt, lactose-reduced See Rx Instructions .Route BID 12/13/19 (Boost Calorie Smart oral liquid) #500 mL chlorthalidone 50 mg tablet 50 mg PO DAILY #90 tabs 03/26/22 losartan 100 mg tablet 100 mg PO DAILY #90 tab-caps 03/26/22 sildenafil 100 mg tablet (Viagra) 100 mg PO PRN #30 tab-caps 03/26/22 naltrexone 50 mg tablet 50 mg PO DAILY #90 tabs 07/28/22 amitriptyline 25 mg tablet 50 mg PO DAILY 08/03/22 esomeprazole magnesium 20 mg 1 cap PO DAILY 08/03/22 capsule,delayed release triamcinolone acetonide 0.025 % 1 applic topical BID PRN 08/03/22 topical cream acetaminophen 500 mg tablet 500 mg PO Q6H PRN pain #60 tabs 08/05/22 ibuprofen 600 mg tablet 600 mg PO TID PRN pain #60 tabs 08/05/22 Current Visit Medications: Current Medications Generic Name Dose Route Start Last Admin Trade Name Marcel PRN Reason Stop Dose Admin Acetaminophen 650 mg 08/05/22 12:28 Acetaminophen 325 Mg Tab PO Q4H PRN PRN Ringer's Solution 1,000 mls @ 80 mls/hr 08/05/22 06:00 IV 09/03/22 23:59 INFUSION MARIE Cefazolin Sodium/Dextrose 2 gm in 50 mls @ 100 mls/hr 08/05/22 06:00 Ancef Duplex IVPB 09/03/22 23:59 PREOP MARIE IV Miscellaneous Supplies 1 each 08/05/22 06:00 Iv Access IV 09/03/22 23:59 DIRECTED MARIE Sodium Chloride 0 ml 08/05/22 06:00 Normal Saline Flush 10 Ml Syr IV 09/03/22 23:59 PRN PRN Sodium Chloride 0 ml 08/05/22 06:00 Normal Saline 10 Ml Vial IJ 09/03/22 23:59 DIRECTED PRN Sterile Water 0 ml 08/05/22 06:00 Water,Injection,Sterile 10 Ml Vial IJ 09/03/22 23:59 DIRECTED PRN PFSH Active Problems Active Problems: Problem Status Onset Code Allergic rhinitis J30.9 Anxiety 06/19/13 F41.9 Chronic sinusitis J32.9 Cluster headache syndrome 05/01/13 G44.009 Essential hypertension 08/22/13 I10 Hypomagnesemia E83.42 Anemia D64.9 Syncopal episodes R55 Ambulatory dysfunction R26.2 Tachycardia R00.0 Peripheral neuropathy G62.9 Essential tremor G25.0 Alcohol use disorder Alcoholic cirrhosis of liver K70.30 GERD (gastroesophageal reflux disease) K21.9 Nicotine dependence F17.200 Ganglion M67.40 Left shoulder pain M25.512 Chronic insomnia F51.04 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 Davila PROCEDURES NASAL REPAIR; Dr. Bennett; nasal septal reconstruction Tobacco Smoking/Tobacco Use Status: Current every day Tobacco Type: cigarettes Smoking cigarettes per day: 10 Second hand exposure: No Alcohol Alcohol Intake: current Alcohol intake frequency: 3 or more drinks per day Alcohol type: hard liquor Substance Use Substance use: Never Substance use type: does not use Details: alcohol: t-1. few drinks Vital Signs and Lab Results Vital Signs Most Recent Vital Signs in EMR: Most Recent Vital Signs Temp Pulse Resp BP Pulse Ox 36.6 C 98 H 18 154/97 H 98 08/05/22 13:22 08/05/22 13:22 08/05/22 13:22 08/05/22 13:22 08/05/22 13:22 Lab Results Blood Type / Crossmatch: No Data to Display Complete Blood Count: No Data to Display Complete Metabolic Panel: No Data to Display Liver Function Panel: No Data to Display Coagulation Panel: No Data to Display Cardiac Panel: No Data to Display Arterial Blood Gas: No Data to Display Venous Blood Gas: No Data to Display Pancreas Panel: No Data to Display Thyroid Panel: No Data to Display Infectious Disease: No Data to Display Blood Cultures: No Data to Display Toxicology Panel: No Data to Display Anesthesia Assessment and Plan Anesthesia History Personal History: No History of Anesthesia Complications Family History: No Family History of Anesthesia Complications Exercise Tolerance Exercise Tolerance: Metabolic Equivalents>4 Pertinent Negatives Pertinent Negatives: No Symptoms of GERD, No Major Cardiovascular Symptoms or Complaints and No Major Pulmonary Symptoms or Complaints Cardiac & Pulmonary Exam Cardiac Exam: Normal S1/S2 Heart Sounds Pulmonary Exam: Clear Bilateral Breath Sounds Implantable Cardiac Device Does patient have a Pacemaker or an ICD?: No Airway Exam Known Difficult Airway: No Mallampati Class: 3 Mouth Opening: Normal (> 3cm) Thyromental Distance: Less than 3 cm Facial Hair: Full Michele Neck Range of Motion: Full ROM Neck Circumference: Normal Teeth Condition: Normal Dentition ASA Classification ASA Score: ASA 3 Emergency Case?: No NPO Status NPO Status: NPO Clears >2 hours, Solids >8 hours Anesthesia Plan Resuscitation Status: Full Code Anesthesia Technique: General Anesthesia Airway Planned: Natural Airway Monitors Used: Standard Monitors
[2022-08-05 13:57] VITALS: BMI 25.6
[2022-08-05] MEDS: Lactated Ringers 1,000 ML 80 ML IV (14:00)
[2022-08-05] MEDS: ceFAZolin 2 GM/50 ML BAG IVPB (14:17)
[2022-08-05] MEDS: Lidocaine 1% Pres-Free W/EPI 1/200,000 10 ML VIAL (14:30)
[2022-08-05] MEDS: Sodium Bicarbonate 50 MEQ/50 ML VIAL (14:30)
[2022-08-05 14:55] VITALS: BP 171/90; PULSE 97; RESP 18; TEMP 36.6; O2SAT 99
--- NOTE | 2022-08-05 14:57 | W.ANESPOSTOP ---
Postoperative Evaluation Date, Time and Location Date Performed: 08/05/22 Time Performed: 14:57 Patient Location: Day Surgery Unit Vital Signs Most Recent Imported Vital Signs: Most Recent Vital Signs Temp Pulse Resp BP Pulse Ox 36.6 C 98 H 18 154/97 H 98 08/05/22 13:22 08/05/22 13:22 08/05/22 13:22 08/05/22 13:22 08/05/22 13:22 Most Recent Manually Entered Vital Signs: Adult Blood Pressure: 171/90 Heart Rate: 87 Respirations: 12 Oxygen Saturation (%): 99 Temperature (C): 36.3 C Pain Score (0-10 Scale): 0 Pain Score Most Recent Pain Score: Most Recent Pain Score Pain Level 0 08/05/22 13:22 Assessment Mental Status: Awake (Alert & Oriented to Patient Baseline) Airway and Respiratory Function: Patent airway with normal (patient baseline) respiratory exam Cardiovascular Function: Hemodynamically Stable Hydration Status: Adequately Hydrated Nausea & Vomiting: No Nausea or Vomiting Pain: Pt. Denies Any Pain Peripheral Nerve Block: Patient did not receive a nerve block
[2022-08-05 14:58] VITALS: BP 171/90; PULSE 87; RESP 12; TEMPC 36.3; O2SAT 99
[2022-08-05 15:22] VITALS: BP 161/91; PULSE 85; RESP 18; TEMP 36.3; O2SAT 97
--- NOTE | 2022-08-10 21:32 | ROE_ITS ---
Date of service: 08/05/22 Time of Service: 15:00 Operative Note Operative Note DATE OF PROCEDURE: 08/05/22 PRE-OP DIAGNOSIS: Right Carpal Tunnel Syndrome, Right Dorsal Wrist Cyst POST-OP DIAGNOSIS: same PROCEDURE: Right Endoscopic Carpal Tunnel Release, Right Dorsal Wrist Cyst Excision SURGEON: Garret Byers ANESTHESIA TYPE: MAC Refer to Anesthesia Record ESTIMATED BLOOD LOSS: 0 PATHOLOGY: none sent TOURNIQUET TIME: 15 COMPLICATIONS: None Patient was transported to: same day Patient's condition: stable Indications: I have seen Derrell in clinic for symptoms of carpal tunnel syndrome as well as a large dorsal wrist ganglion. The numbness, tingling, and pain limited function. Clinical exam findings with nerve conduction tests confirmed the diagnosis of carpal tunnel syndrome. Nonoperative measures such as bracing, time, activity modifications had been tried but disability and pain persisted. The cyst was qu ite large and interefered with normal daily living activities. I discussed carpal tunnel release with the patient. I reviewed the risks of the procedure to include, but not limited to, bleeding, infection, pain, stiffness, incomplete release, damage to nerves or vessels, persistent numbness, recurrence. Despite these risks, the patient elected to proceed. Findings: There was tightened carpal tunnel. This was dilated and released successfully with the endoscopic with increased space within the tunnel. The antebrachial fascia was released proximally freeing the median nerve at the wrist. A dorsal wrist cyst was excised from the underlying extensor tendons. There was notable synovitis of the tendons but the cyst did not pentrate deeply to the joint. Procedure Description: Derrell was greeted in the preoperative holding area where the correct side was identified and marked. The consent was reviewed with the patient and signed. The history and physical was updated. All questions were answered. He was taken back to the operating room. The patient was placed into the supine position on the operating room table with the right arm on an arm board. A nonsterile tourniquet was placed high onto the arm. All bony prominences were well padded. Prophylactic antibiotics in the form of Cefazolin were administered. The right arm was then prepped with Chloraprep and draped in a standard fashion with stockinette and extremity drape. A timeout to confirm correct identity, side and site, procedure, allergies, anesthesia, and medical concerns was performed. The surgical site was marked in the volar wrist creases in line with the radial border of the fourth ray. This area was anesthetized with approximately 6cc of 1% Lidocaine. The limb was then exsanguinated with an Esmarch. The skin was incised with a 15 blade, approximately 1cm. The skin only was cut and the deeper tissue was dissected bluntly with a tenotomy scissor, avoiding passing nerve and venous structures. The fascia was penetrated and opened bluntly. A two-prong skin hook was placed under this proximal fascial edge. A series of hamate finders were used to identify and dilate the carpal tunnel. Synovial elevator was used to free synovial attachments to the underside of the transverse carpal ligament. My thumb was kept in the palm to reji the distal extent of the carpal tunnel and correctly position the hand. The [employer] endoscope was inserted without difficulty and without resistance. Excellent visualization showed horizontally running fibers of the transverse carpal ligament (TCL). The distal extent of the TCL was visualized and the end of the scope palpated with the thumb. The blade was elevated and withdrawn from distal to proximal. The TCL was split into two flaps. The endoscope was reinserted to confirm complete release and any remnant ligament was incised. The scope was withdrawn and the proximal aspect of the carpal tunnel was grossly inspected and appeared release with the median nerve visible. The antebrachial fascia at the level of the wrist was then freed from the overlying skin and then the underlying median nerve with blunt dissection. This was transected longitudinally for about 3cm proximal to the wrist incision. The wound was then irrigated with easy flow of irrigant distally and proximally. The incision was closed with a single 4-0 Nylon suture. Patient was then turned to the dorsal of the wrist. A longitudinal incision was made centered over the cyst. This taken down sharply the skin. Blunt dissection with a tenotomy scissor was performed. The dorsal fascia was released and the cyst was easily visible. The cyst was identified at its boundaries and elevated off the underlying tendons. It seemed to be originating from the tendons itself. With the tendons exposed I then resected the cyst and its capsule deflating the cyst. The cyst was resected. The tendons were easily visible. There is no deep penetration of the cyst. The tendons were mobilized both medially and laterally and showed no signs of tearing. With the tendons retracted it was apparent that there also was some fluid tracking proximally. Retraction was made proximally and there was notable synovitis of the extensor tendons with some cystic change around them. This area was also deflated which did show some fluid. This excess tissue was resected as well. Once again, there is no apparent cystic structure penetrating the radiocarpal joint. The tendons were further inspected to ensure there is no excessive synovium or other cystic changes around them. This did correspond to the MRI which showed fluid tracking around the tendons. The wound was then thoroughly irrigated. A single suture was placed into the extensor fascia. The deep dermal layer was closed with a 3-0 Vicryl. Skin was closed with a running subcuticular 4-0 Monocryl whi ch was reinforced with skin glue. The wound was dressed with Xeroform, Gauze, Kerlix and Baldomero. The tourniquet was deflated with the initial dressing and held with some pressure. Blood flow returned easily to all digits with capillary refill less than 2 seconds. The patient tolerated the procedure well and was returned to the Same Day Surgery area in a stable condition suffering no known complication.
== END 2022-08-05 16:15 | disposition home or self-care (01) ==
PROVIDERS: PCP Family Medicine; Visit Provider Student in an Organized Health Care Education/Training Program
PROC: (CPT 29848; principal; 2022-08-05 14:45)
PROC: 01N54ZZ Release Median Nerve, Percutaneous Endoscopic Approach (ICD-10-PCS; CPT 29848; 2022-08-05 14:45)
DX: G56.01 Carpal tunnel syndrome, right upper limb (principal); M67.431 Ganglion, right wrist
CPT/HCPCS: 29848; 25111; J0690; J2250

== ENCOUNTER → 2022-08-14 10:56 | Outpatient (BNVA) | payer MEDICARE, MEDICAID, SELFPAY | PROVIDERS: PCP Family Medicine; Referring Provider Family Medicine; Visit Provider Physician Assistant | DX: M67.441 Ganglion, right hand (principal); Z47.89 Encounter for other orthopedic aftercare ==

== ENCOUNTER → 2022-08-27 10:54 | Outpatient (BNVA) | payer MEDICARE, MEDICAID, SELFPAY | PROVIDERS: PCP Family Medicine; Referring Provider Family Medicine; Visit Provider Student in an Organized Health Care Education/Training Program | DX: Z47.89 Encounter for other orthopedic aftercare (principal); M67.441 Ganglion, right hand ==

== ENCOUNTER → 2022-10-12 12:56 | Outpatient (BNVA) | payer MEDICARE, MEDICAID, SELFPAY | PROVIDERS: PCP Family Medicine; Referring Provider Family Medicine; Visit Provider Physician Assistant | DX: Z47.89 Encounter for other orthopedic aftercare (principal); R20.0 Anesthesia of skin ==

== ENCOUNTER 2022-11-09 02:14 | Outpatient (CLI) | payer MEDICARE, MEDICAID, SELFPAY ==
--- NOTE | 2022-11-09 07:45 | DI.MRI_ITS ---
Exam(s) MR UPPER JOINT RT WO EXAM: MR UPPER JOINT RT WO CLINICAL HISTORY: DETERMINE POSSIBILITY OF REVISION SURGERY,H/O CARPAL TUNNEL,RT GANGLION. TECHNIQUE: Multiplanar multisequence MRI was performed. COMPARISON: MRI 15 July 2022. Plain films 06 July 2022 FINDINGS: Fluid is again noted around the extensor digitorum tendons. The tendons appear intact. A ganglion cyst is noted at the ventral aspect adjacent to the ulnar styloid which is increased in si ze, measuring 8 x 7 millimeters. Dorsal ganglion cyst appears to have decreased in size, measuring 8 x 4 by 5 millimeters. New line severe dorsal tilt of the lunate is again noted. Degenerative antonio es are prominent at the scaphoid trapezium trapezoid joints and at carpal metacarpal joints. Subchon dral cysts are noted in numerous bones.. There is no evidence of fracture. The triangular fibrocartilage appears intact. There is mild widening of the scapholunate distance. IMPRESSION: Decreased size of previously noted dorsal ganglion cyst. Mild increase in size ganglion cyst adjacen t to the ulnar styloid. Advanced degenerative changes. No tendon abnormalities seen. DATA REPOSITORY:
== END 2022-11-09 02:34 ==
LOC: DI 02:15
PROVIDERS: PCP Family Medicine; Visit Provider Student in an Organized Health Care Education/Training Program
DX: M67.441 Ganglion, right hand (principal); Z98.890 Other specified postprocedural states; M19.041 Primary osteoarthritis, right hand
CPT/HCPCS: 73221

== ENCOUNTER → 2022-11-26 14:31 | Outpatient (BNVA) | payer MEDICARE, MEDICAID, SELFPAY | PROVIDERS: PCP Family Medicine; Referring Provider Family Medicine; Visit Provider Student in an Organized Health Care Education/Training Program | DX: M19.031 Primary osteoarthritis, right wrist (principal) | CPT/HCPCS: 20606; J1030 ==

== ENCOUNTER 2023-01-28 12:20 | Outpatient (CLI) | payer MEDICARE, MEDICAID, SELFPAY ==
[2023-01-28 11:03] LABS: Abs Immature Grans 0.04 10^3/uL (0.0-0.06); Absolute Basophil Count 0.07 10^3/uL (0.0-0.2); Absolute Eosinophil Count 0.09 10^3/uL (0.0-0.7); Absolute Lymphocyte Count 1.96 10^3/uL (1.2-3.4); Absolute Monocyte Count 0.78 10^3/uL (0.1-0.8); Absolute Neutrophil Count 3.96 10^3/uL (1.2-6.7); Eosinophils % 1.3; HCT 36.2 % (40.0-50.0); HGB 13.1 g/dL (13.5-17.5); Immature Grans % 0.6; Lymphocytes % 28.4; MCH 33.5 pg (27.0-33.0); MCHC 36.2 % (32.0-36.0); MCV 93 fL (80-95); MPV 9.5 fL (8.0-11.0); Monocytes % 11.3; Neutrophils % 57.4; Platelet Count 285 10^3/uL (130-400); RBC 3.91 10^6/uL (4.36-5.78); RDW 11.9 % (11.8-14.1); RDW-SD 40.1 fL
[2023-01-28 11:31] LABS: Anion Gap 5.1 mmol/L (3-11); BUN 20 mg/dL (7-18); CO2 32.9 mmol/L (21.0-32.0); CREATININE 1.2 mg/dL (0.70-1.30); Calcium 9.4 mg/dL (8.5-10.1); Chloride 91 mmol/L (98-107); Estimated GFR 64.65 (mL/min/1.73m2); Glucose 116 mg/dL (74-106); Potassium 3.6 mmol/L (3.5-5.1); Sodium 129 mmol/L (136-145)
[2023-01-28 12:23] LABS: Lab Add On Test DONE
[2023-01-28 13:49] LABS: Hemoglobin A1C 5.3 % (<5.7)
== END 2023-01-28 12:21 | disposition home or self-care (01) ==
LOC: LBO 12:21
PROVIDERS: PCP Family Medicine; Visit Provider Family Medicine
DX: D64.9 Anemia, unspecified (principal); E87.1 Hypo-osmolality and hyponatremia; R73.9 Hyperglycemia, unspecified
CPT/HCPCS: 36415; 80048; 83036; 85025

== ENCOUNTER 2023-04-27 04:54 | Outpatient (CLI) | payer MEDICARE, MEDICAID, SELFPAY ==
[2023-04-27 12:29] LABS: Anion Gap 10.3 mmol/L (3-11); BUN 16 mg/dL (7-18); CO2 28.7 mmol/L (21.0-32.0); CREATININE 1.2 mg/dL (0.70-1.30); Calcium 9.8 mg/dL (8.5-10.1); Chloride 93 mmol/L (98-107); Estimated GFR 64.65 (mL/min/1.73m2); Glucose 114 mg/dL (74-106); Potassium 3.7 mmol/L (3.5-5.1); Sodium 132 mmol/L (136-145)
== END 2023-04-27 04:55 | disposition home or self-care (01) ==
LOC: LOS 04:54
PROVIDERS: PCP Family Medicine; Visit Provider Family Medicine
DX: E87.1 Hypo-osmolality and hyponatremia (principal); E83.42 Hypomagnesemia
CPT/HCPCS: 36415; 80048; 83735

== ENCOUNTER 2023-06-16 01:53 | Outpatient (CLI) | payer MEDICARE, MEDICAID, SELFPAY ==
[2023-06-16 12:22] LABS: HCT 35.7 % (40.0-50.0); HGB 12.8 g/dL (13.5-17.5); MCH 34.1 pg (27.0-33.0); MCHC 35.9 % (32.0-36.0); MCV 95 fL (80-95); MPV 10.4 fL (8.0-11.0); Platelet Count 230 10^3/uL (130-400); RBC 3.75 10^6/uL (4.36-5.78); RDW 12.4 % (11.8-14.1); RDW-SD 43.2 fL; WBC 5.53 10^3/uL (4.4-10.8)
[2023-06-16 13:05] LABS: Anion Gap 11.5 mmol/L (3-11); CO2 26.5 mmol/L (21.0-32.0); Chloride 93 mmol/L (98-107); Potassium 3.2 mmol/L (3.5-5.1); Sodium 131 mmol/L (136-145); Vitamin B12 824 pg/mL (193-986)
== END 2023-06-16 01:54 | disposition home or self-care (01) ==
LOC: LOS 01:53
PROVIDERS: PCP Family Medicine; Visit Provider Family Medicine
DX: D64.9 Anemia, unspecified (principal); R53.83 Other fatigue; E87.1 Hypo-osmolality and hyponatremia
CPT/HCPCS: 36415; 80051; 85027; 82607